=== PATIENT | male | born 1940 | race Caucasian/White ===

== ENCOUNTER 2023-10-05 06:18 | Day surgery (SDC) | payer MEDICARE, OTHER, SELFPAY ==
[2023-10-05] VITALS (7 sets, daily range): BP systolic 103–113; BP diastolic 46–90; BMI 39.3
[2023-10-05] MEDS: LOW STRENGTH ASPIRIN 81 MG PO (07:21)
--- NOTE | 2023-10-05 08:32 | ITS.CL.CATH ---
[facility] - Catheterization
Cardiac Catheterization
Procedure Report:
CARDIAC CATHETERIZATION REPORT
Date of Procedure: 10/05/2023
Referring: Jose Gonzalez M.D., Ph.D.
Indication: Severe aortic valve stenosis.
PROCEDURE:
1. Right heart catheterization.
2. Coronary angiography.
ACCESS:
6 Japanese right radial artery.
5 Japanese right antecubital vein.
CATHETERS:
1. 5 Japanese balloon wedge.
2. 5 Japanese JL 3.5.
3. 5 Japanese JR4.
HEMODYNAMIC DATA
Weight (kg): 103.7
AO (s/d/x mmHg): 109/59/80
LV (s/x mmHg): Not obtained.
PCWP (a/v/x mmHg): 28//24
PA (s/d/x mmHg): 53/25/34
RV (s/x mmHg): 53/13
RA (a/v/x mmHg): /
SVC SvO2 (%): 71.6
PA SvO2 (%): 69.7
SaO2 (%): 85.6
Hbg (g/dL): 13.4
CO (L/min): 8.05
CI (L/min/m2): 3.88
TPG (mmHg): 10
PVR (Meyers Units): 1.24
SVR (dynes*seconds*cm^-5): 666
AVO2 Diff (Volume %): 2.90
AV gradient (x, mmHg): Not obtained.
AV area (cm2): Not obtained.
LEFT VENTRICULOGRAPHY: Not performed.
CORONARY ANGIOGRAPHY
Dominance: Right.
Left Main: Normal size, bifurcating vessel. There is no coronary artery disease.
LAD: Normal size vessel giving rise to 1 significant diagonal. There is a 50% lesion in the mid vessel.
Ramus: Congenitally absent.
Circumflex: Large size, nondominant vessel giving rise to 1 large obtuse marginal. This marginal subsequently bifurcates into 2 daughter vessels which were both bifurcating and into a total of 4 smaller branches. There is no coronary artery
disease.
RCA: Normal size, dominant vessel. There is a 40% lesion in the mid vessel.
INTERVENTIONS
None.
Closure Device: Vascular band for the right radial artery, manual pressure for the right antecubital vein.
Radiation dose (mGy): 454.26
DAP (cm2.Gy): 28.0898
Fluoroscopy time (minutes): 3.6
Sedation time (minutes): 11
CONCLUSIONS:
1. Right dominant circulation with a 50% mid LAD lesion and a 40% mid RCA lesion.
2. Severely elevated filling pressures (PCWP = 24 mmHg at 103.7 kg).
3. Severe aortic valve stenosis by echocardiography.
RECOMMENDATIONS:
1. Expectant management after cardiac catheterization via right radial/antecubital approach.
2. Limited weight bearing on the right wrist for one week.
3. Continue TAVR workup.
4. The patient may benefit from some diuresis. Discontinue combination atenolol/chlorthalidone to mitigate risk of hyponatremia as well as to decrease risk of beta-charlotte toxicity in the context of CKD.
5. Start metoprolol succinate 50 mg daily.
6. Start furosemide 20 mg daily.
7. BMP in 1 week.
Copy to: Jose Gonzalez M.D., Ph.D., Bruna Yung D.O.
Baldomero Pacheco DO, FACC, FACP
--- NOTE | 2023-10-05 08:43 | CONSULT.STRU ---
Addendum entered and electronically signed by ENID White 11/03/23 08:43:
Patient discussed and case reviewed by the Structural Heart Team in the shared decision making meeting. The team feels that TAVR is the appropriate treatment for his severe, symptomatic aortic stenosis utilizing a 29mm S3 valve via transfemoral
access. Will call patient to review discussion and schedule for his TAVR procedure.
Original Note:
Consultation
-
Date/Time Consultation Requested: 10/05/2023829
Date/Time Consultation Performed: 10/05/202330
Requesting Provider: Baldomero Pacheco DO
Performing Provider: Yessenia Salazar
Reason for Consultation: /TAVR
Patient History
Physicians
Family Physician: Bruna Yung MD
Outpatient Nuclear Medicine Officer: Jose Gonzalez MD
Primary Nuclear Medicine Officer: Jose Gonzalez MD
History of Present Illness
Mr. Pineda is a very pleasant 83 yom that presents with severe symptomatic associated with NUR. His echocardiogram from 07/17/2024 is notable for AV P/M 70/43, NESSA 0.68, Trace AI, EF 55-60%, MAC with mild MR, PAP 48. Patient explains that he is
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 Discussed the pathophysiology and treatment options of including SAVR and TAVR. Reviewed kidney function with patient and explained will repeat labs next week. Depending on results, informed "Mimi"Miriam that the CT scan may need to be staged. He will receive a phone call with results and if CT scan will be done in two segments. Explained the evaluation process comprising of CT surgical consult, CT scan, heart team discuss. Mr. Pineda states he
has no teeth and wears dentures, therefore he will not need dental clearance. TAVR booklet, prescriptions, contact information, and appointments given to patient. Allowed for and answered questions at bedside.
Past Medical History
Past Medical History: CHF (stage II diastolic dysfunction), HTN, Hypercholesterolemia, NIDDM (Pre-Diabetes), Valvular Disease (Aortic Stenosis) and Other (Stage 3a CKD, basal cell carcinoma, measles, mumps, chicken pox, prostate ca, insomnia,
peripheral neuropathy)
Past Surgical History
Past Surgical History: Appendectomy, Orthopedic ((R) THR, (L) THR) and Other (Partial nephrectomy (benign kidney growth))
Dental History
Edentulous
Family History
Mother: at Age (65) and Cause of (cancer)
Father: at Age (88) and Cause of (cancer)
Social History
Alcohol: None
Drug: None
Tobacco: Non-Smoker
Personal:
Living: With Spouse
Employment: Retired
Allergies
Allergy/AdvReac Type Severity Reaction Status Date / Time
levofloxacin [From Levaquin] Allergy Rash Verified 10/05/23 07:08
Home Medications
Medication Instructions Recorded Confirmed Type
amlodipine 5 mg tablet 5 mg PO DAILY bp 10/05/23 10/05/23 History
aspirin 81 mg tablet 81 mg PO DAILY supp 10/05/23 10/05/23 History
atenolol 100 mg-chlorthalidone 25 1 tab PO DAILY bp 10/05/23 10/05/23 History
mg tablet
benazepril 20 mg tablet 20 mg PO DAILY bp 10/05/23 10/05/23 History
cholecalciferol (vitamin D3) 25 25 mcg PO DAILY Supplement 10/05/23 10/05/23 History
mcg (1,000 unit) tablet (Vitamin
D3)
sfvzctfhman-ywqpmrkmi-espb247-hyal 1 tab PO BID Supplement 10/05/23 10/05/23 History
750 mg-100 mg-125 mg-1.65 mg
tablet (Glucosamine Chondroit
Complx Advan)
lovastatin 10 mg tablet,extended 10 mg PO HS cholesterol 10/05/23 10/05/23 History
release 24 hr
nuumtbsgytgq-rxuzsjfq-exjggw tablet 1 tab PO DAILY Supplement 10/05/23 10/05/23 History
omega 6-nym-kkg-fish oil 1,200 mg 1,200 cap PO BID AT 0800,1600 supp 10/05/23 10/05/23 History
(144 mg-216 mg) capsule (Fish Oil)
tamsulosin 0.4 mg capsule 0.4 mg PO DAILY prostate 10/05/23 10/05/23 History
vitamin B12 1,000 mcg-folic acid 1,000 tab sublingual DAILY 10/05/23 10/05/23 History
400 mcg sublingual tablet Supplement
STS%
STS %: 3.71
Review of Systems
-
History Source: Patient
General: Reports Fatigue
HEENT: Reports No Symptoms
Respiratory: Reports SOB
Cardiac: Reports No Symptoms
Abdomen/GI: Reports No Symptoms
: Reports No Symptoms
Neurological: Reports No Symptoms
Physical Exam
Vital Signs
Temp 97.9 F 10/05/23 06:43
Temp route: Oral 10/05/23 06:43
Pulse 58 10/05/23 06:43
Resp Rate 19 10/05/23 06:43
Blood pressure 112/46 10/05/23 06:43
Blood pressure extremity used: Left upper arm 10/05/23 06:43
Position: Sitting 10/05/23 06:43
SaO2 96 10/05/23 06:43
Oxygen Mode of Delivery Room air 10/05/23 06:43
Can the patient verbally communicate their pain? Yes 10/05/23 08:39
Actual Weight 103.7 kg 10/05/23 06:43
Body Mass Index (BMI) 39.3 10/05/23 06:43
Labs
09/28/2023
HH: 14.5/44.1
plt: 264K
BUN/Creatine: 25./1.3
GFR: 54.17
Alb: 3.7
Diagnostic Studies
Echo: 07/17/2023
�CONCLUSIONS
�Normal left ventricular size, wall thickness and systolic function.� No
�regional wall motion abnormalities are seen. Estimated ejection fraction is 55-
�60%. Stage II diastolic dysfunction suggestive of abnormal relaxation and
�increased filling pressures.
�Normal right ventricular size and function.
�Structurally normal mitral valve. Mitral annular calcification. Mitral valve
�opens normally. Mild mitral regurgitation.
�Trileaflet aortic valve. Heavily calcified and thickened aortic valve with
�restricted leaflet motion. Peak/mean gradients across the valve are 70/43 mmHg.�
�Using a LVOT of 2.0 cm the calculated valve area is 0.68 cm2.� Severe aortic
�stenosis. Trace aortic regurgitation.
�Structurally normal tricuspid valve. Tricuspid valve opens normally. Mild
�tricuspid regurgitation. Estimated pulmonary artery pressure of 48 mmHg,
�assuming a right atrial pressure of 3 mmHg.�
�As per [place] Act 112, known as Patient Test Result Information Act, a letter will
�be sent to the patient, which notifies to the patient that a significant
�abnormality may exist. A letter will be sent approximately 10 days after the
�echo report is finalized.
Cath 10/05/2023:
CONCLUSIONS:
1.� Right dominant circulation with a 50% mid LAD lesion and a 40% mid RCA lesion.
2.� Severely elevated filling pressures (PCWP = 24 mmHg at 103.7 kg).
3.� Severe aortic valve stenosis by echocardiography.
RECOMMENDATIONS:
1. Expectant management after cardiac catheterization via right radial/antecubital approach.
2. Limited weight bearing on the right wrist for one week.
3.� Continue TAVR workup.
4.� The patient may benefit from some diuresis. Discontinue combination atenolol/chlorthalidone to mitigate risk of hyponatremia as well as to decrease risk of beta-charlotte toxicity in the context of CKD.
5.� Start metoprolol succinate 50 mg daily.
6.� Start furosemide 20 mg daily.
7.� BMP in 1 week.
Exam
General: Well Developed
HEENT: Normocephalic and Moist Mucous Membranes
Respiratory: Clear
Cardiac: Regular Rhythm and Murmur (IV/ ALETHA)
GI: Soft and Non Tender
Rectal: Deferred by Provider
Skin: Warm, Dry and Rash (Groin)
Neuro: Awake, Alert and Oriented
Extremities: Lower Level Edema
Psych: Calm
Assessment / Plan
-
Aortic Stenosis
Continue TAVR evaluation
Trend creatinine (Rx given)
TAVR CT scan (10/25)
CT surgical consult (10/12 TT)
Frailty testing and KCCQ12 at consult
Dental Clearance (pt edentulous)
Will need to start aspirin
Heart team discussion
Data Reviewed
-
Laminating Machine Feeder: Report Reviewed by me and Discussed with Physician
Echo: Report Reviewed by me and Discussed with Physician
Labs: Labs Reviewed by me
Old Records: Reviewed (Dr. Gonzalez OV)
Total Time Spent with Patient (in minutes): 45
--- NOTE | 2023-10-05 09:37 | PTCARENOTE ---
dr mosquera and ac mccrary from Tavr into speak to pt
== END 2023-10-05 11:14 | disposition home or self-care (01) ==
LOC: CATH 06:18
PROVIDERS: ATTENDING PHYSICIAN Internal Medicine Cardiovascular Disease; FAMILY PHYSICIAN Student in an Organized Health Care Education/Training Program; OTHER PHYSICIAN Internal Medicine
DX: I25.10 Atherosclerotic heart disease of native coronary artery without angina pectoris (principal); R06.09 Other forms of dyspnea; I13.0 Hypertensive heart and chronic kidney disease with heart failure and stage 1 through stage 4 chronic kidney disease, or unspecified chronic kidney disease; I50.32 Chronic diastolic (congestive) heart failure; E11.22 Type 2 diabetes mellitus with diabetic chronic kidney disease; I08.3 Combined rheumatic disorders of mitral, aortic and tricuspid valves; N18.31 Chronic kidney disease, stage 3a; E78.00 Pure hypercholesterolemia, unspecified; Z85.828 Personal history of other malignant neoplasm of skin; Z85.46 Personal history of malignant neoplasm of prostate; E11.42 Type 2 diabetes mellitus with diabetic polyneuropathy
CPT/HCPCS: 93456; C1894; Q9967

== ENCOUNTER → 2023-10-12 10:20 | Outpatient (REF) | payer MEDICARE, OTHER, SELFPAY ==
[2023-10-12 11:30] LABS: Blood Urea Nitrogen 25 mg/dl (9-20); Calcium 9.1 mg/dl (8.4-10.2); Carbon Dioxide 32 mmol/L (22-30); Chloride 105 mmol/L (98-107); Glucose 81 mg/dl (70-99); Magnesium 2.2 mg/dl (1.6-2.3); Potassium 4.2 mmol/L (3.5-5.1); Sodium 140 mmol/L (135-145); eGFR 54.17
== END ==
LOC: REG 10:20
PROVIDERS: ATTENDING PHYSICIAN Internal Medicine Cardiovascular Disease; FAMILY PHYSICIAN Internal Medicine
DX: I10 Essential (primary) hypertension (principal); N18.9 Chronic kidney disease, unspecified
CPT/HCPCS: 36415; 80048; 83735

== ENCOUNTER → 2023-11-01 08:44 | Outpatient (REF) | payer MEDICARE, OTHER, SELFPAY ==
[2023-11-01 09:58] LABS: Glycohemoglobin (HgbA1c) 5.8 % (4.0-5.6)
[2023-11-01 10:22] LABS: Blood Urea Nitrogen 19 mg/dl (9-20); Calcium 8.8 mg/dl (8.4-10.2); Carbon Dioxide 31 mmol/L (22-30); Chloride 105 mmol/L (98-107); Glucose 92 mg/dl (70-99); HDL Cholesterol 39 mg/dl; LDL Cholesterol, Calculated 56 mg/dl; Potassium 4.3 mmol/L (3.5-5.1); Sodium 140 mmol/L (135-145); Total Cholesterol 115 mg/dl (50-199); Triglyceride 103 mg/dl (10-149); Very Low Density Lipoprotein 20 mg/dl (0-30); eGFR 54.17
[2023-11-01 10:28] LABS: Vitamin D, 25-OH*** 49.4 ng/mL (30-80)
[2023-11-01 11:17] LABS: Folate > 20.0 ng/ml (2.76-20); Vitamin B12 667 pg/ml (239-931)
== END ==
LOC: RAD 08:44
PROVIDERS: ATTENDING PHYSICIAN Nurse Practitioner Acute Care; FAMILY PHYSICIAN Student in an Organized Health Care Education/Training Program
DX: I35.0 Nonrheumatic aortic (valve) stenosis (principal); G62.9 Polyneuropathy, unspecified; Z79.899 Other long term (current) drug therapy; E78.5 Hyperlipidemia, unspecified; R73.03 Prediabetes; R94.4 Abnormal results of kidney function studies
CPT/HCPCS: 36415; 74174; 75572; 80048; 80061; 82306; 82607; 82746; 83036; Q9967

== ENCOUNTER 2023-12-07 05:24 | Inpatient (IN) | payer MEDICARE, OTHER, SELFPAY ==
[2023-11-29 11:47] VITALS: BMI 39.3
--- NOTE | 2023-11-29 12:09 | HPS.HSE ---
Family Physician
-
Family Physician: Mary Kay Yung DO
Chief Complaint
-
NUR
History of Present Illness
Mr. Pineda is a very pleasant 83 yom that presents with severe symptomatic associated with NUR. His echocardiogram from 07/17/2024 is notable for AV P/M 70/43, NESSA 0.68, Trace AI, EF 55-60%, MAC with mild MR, PAP 48. Patient explains that he is
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 Discussed the pathophysiology and treatment options of including SAVR and TAVR. Reviewed kidney function with patient.Mr. Pineda states he has no teeth and wears dentures, therefore he will not need
dental clearance. Patient has been evaluated by the heart team and recommended for transfemoral TAVR utilizing a 26 mm S3 via right access.
Assessed patient in preadmission testing and confirmed medication list. Mr. Pineda will continue aspirin including the morning of TAVR and hold fish oil starting Tomorrow (11/29). He will arrive to the [facility] atrium at 0530. Reviewed the risks of the
procedure including stroke, ppm, and vascular injury. Informed him, he will get a call from the heart team on Monday (12/05) to confirm time and location of arrival. Allowed for and answered questions.
Medical History
Past Medical History
Past Medical History: Reports Cancer (prostate, basal cell), HTN, Valvular Disease (aortic stenosis) and Other (insomnia, HLD, peripheral neuropathy, measles, mumps, chicken pox.)
Past Surgical History: Reports Appendectomy and Orthopedic (Left and right THR)
Additional Past Surgical History:
benign kidney growth, hernia repair
Social History
Tobacco: Non-smoker
Alcohol: None
Drug: None
Personal:
Living: Alone
Employment: Retired
Family History
Family History: Not pertinent
Allergies / Home Medications
Allergies reflects when Allergies were last updated in [facility].
adhesive-- rash
levofloxacin -- rash
Home Medications with original date entered in [facility]
Allergy/Medication List:
amLODIPine Besylate 5 MG Tablet 1 tablet Orally Once a day
Aspirin 81 81 MG Tablet Delayed Release 1 tablet Orally Once a day
Benazepril HCl 20 MG Tablet 1 tablet Orally Once a day
Centrum Silver(Multiple Vitamins-Minerals) - Tablet as directed Orally
Fish Oil 1200 MG Capsule Delayed Release 1 capsule Orally Once a day, Notes: 2x day
Lwugsx-Shjpwubyk-TPC Complex(Misc Natural Products) - Tablet as directed Orally Twice a Day
Lasix(Furosemide) 20 MG Tablet 1 tablet Orally Once a day
Lovastatin 10 MG Tablet 1 tablet with the evening meal Orally Once a day
Tamsulosin HCl 0.4 MG Capsule 1 capsule Orally Once a day
Toprol XL 50 MG Tablet Extended Release 1 tablet Orally Once a day
Vitamin B12 1000 MCG Tablet Extended Release 1 tablet Orally Once a day
Vitamin D3(Cholecalciferol) 473844 UNIT/GM Powder as directed
Review of Systems
-
History Source: Patient
Constitutional: Reports No Symptoms
EENT: Reports No Symptoms
Respiratory: Reports Other (mild NUR)
Cardiac: Reports No Symptoms
Abdomen/GI: Reports No Symptoms
: Reports No Symptoms
Musculoskeletal: Reports Joint Pain
Skin: Reports No Symptoms
Neurological: Reports No Symptoms
Hematologic/Lymphatic: Reports No Symptoms
Psych: Reports No Symptoms and Calm
Physical Exam
Physical Exam
General: Well Developed, Well Nourished and No Apparent Distress
HEENT: NormoCephalic and Moist mucous membranes
Respiratory: Clear
Cardiac: Regular Rhythm and Murmur (III/ ALETHA)
Breast: Deferred by me
GI: Non Tender
Rectal: Deferred by Provider
Genito-urinary: Deferred by me
Musculoskeletal: Edema, Left Lower Extremity and Edema, Right Lower Extremity
Skin: Warm and Dry
Neuro: Awake, Alert, Oriented and AO x 3
Psych: Calm
Data Reviewed
-
Diagnostic Radiology: Report Reviewed by me
CT Scan: Report Reviewed by me and Discussed with Physician (Reviewed TAVR CT scan with the heart team)
Medical Tests (Nuc Med, Echo, EKG etc): Report Reviewed by me and Discussed with Physician (Reviewed Echocardiogram and cardiac catheterization with the heart team)
Lab Data: Labs Reviewed by me
Old Records: Reviewed
Impression/Plan
-
IMPRESSION/ PLAN:
Severe symptomatic -TF TAVR planned with Drs. Pacheco and Brennan utilizing a 26mm S3 via right TF access.
Continue aspirin
POD#10/03 echocardiogram
Cardiac rehab consult.
Lab Results
-
Lab Results
WBC 8.0 10^3/uL (4.8-10.8) 11/29/23 12:11
RBC 4.50 10^6/uL (4.70-6.10) L 11/29/23 12:11
Hgb 14.2 g/dL (13.0-18.0) 11/29/23 12:11
Hct 44.3 % (39.0-52.0) 11/29/23 12:11
MCV 98.4 fL (80.0-94.0) H 11/29/23 12:11
MCH 31.6 pg (27.0-31.0) H 11/29/23 12:11
MCHC 32.1 g/dL (33.0-37.0) L 11/29/23 12:11
RDW 13.9 % (11.5-14.5) 11/29/23 12:11
Plt Count 246 10^3/uL (130-400) 11/29/23 12:11
MPV 9.4 fL (7.4-10.4) 11/29/23 12:11
Abs Immat Gran (auto) 0.0 10^3/uL (0-0.05) 11/29/23 12:11
Absolute Neuts (auto) 5.5 10^3/uL (1.4-6.5) 11/29/23 12:11
Absolute Lymphs (auto) 1.5 10^3/uL (1.2-3.4) 11/29/23 12:11
Absolute Monos (auto) 0.7 10^3/uL (0.1-0.6) H 11/29/23 12:11
Absolute Eos (auto) 0.3 10^3/uL (0-0.7) 11/29/23 12:11
Absolute Basos (auto) 0.1 10^3/uL (0-0.2) 11/29/23 12:11
Immature Gran % 0.3 % (0-0.5) 11/29/23 12:11
Neutrophils % 68.4 % (42.2-75.2) 11/29/23 12:11
Lymphocytes % 18.6 % (20.5-51.1) L 11/29/23 12:11
Monocytes % 8.6 % (1.7-9.3) 11/29/23 12:11
Eosinophils % 3.5 % (0-6) 11/29/23 12:11
Basophils % 0.6 % (0-2) 11/29/23 12:11
Nucleated RBC % 0 % (-) 11/29/23 12:11
PT 14.1 Sec (11.4-14.6) 11/29/23 12:11
INR 1.08 11/29/23 12:11
APTT 30.0 Sec (23.4-35.0) 11/29/23 12:11
Sodium 141 mmol/L (135-145) 11/29/23 12:11
Potassium 4.1 mmol/L (3.5-5.1) 11/29/23 12:11
Chloride 107 mmol/L (98-107) 11/29/23 12:11
Carbon Dioxide 30 mmol/L (22-30) 11/29/23 12:11
BUN 17 mg/dl (9-20) 11/29/23 12:11
Creatinine 1.2 mg/dL (0.7-1.3) 11/29/23 12:11
Estimated Creat Clear 50 ml/min 11/29/23 12:11
eGFR 59.63 11/29/23 12:11
Glucose 89 mg/dl (70-99) 11/29/23 12:11
Calcium 9.4 mg/dl (8.4-10.2) 11/29/23 12:11
Total Bilirubin 0.8 mg/dl (0.2-1.3) 11/29/23 12:11
Direct Bilirubin 0.1 mg/dl (0.0-0.4) 11/29/23 12:11
AST 28 U/L (17-59) 11/29/23 12:11
ALT 23 U/L (0-50) 11/29/23 12:11
Alkaline Phosphatase 53 U/L (38-126) 11/29/23 12:11
Qty-Y-Jgprpfivujt Pept 388 pg/ml 11/29/23 12:11
Total Protein 6.6 g/dl (6.3-8.2) 11/29/23 12:11
Albumin 3.9 g/dl (3.5-5.0) 11/29/23 12:11
Urine Color Yellow 11/29/23 12:31
Urine Clarity Clear (Clear) 11/29/23 12:31
Urine pH 6.5 (5.0-9.0) 11/29/23 12:31
Ur Specific [place] 1.015 (<1.030) 11/29/23 12:31
Urine Ketones Negative (Negative) 11/29/23 12:31
Ur Occult Blood Reflex Negative (Negative) 11/29/23 12:31
Urine Nitrite (Reflex) Negative (Negative) 11/29/23 12:31
Urine Bilirubin Negative (Negative) 11/29/23 12:31
Urine Urobilinogen Negative (Neg - 1+) 11/29/23 12:31
Leukocyte Esterase Rfl Negative (Negative) 11/29/23 12:31
Urine Glucose Negative (Negative) 11/29/23 12:31
Urine Albumin (Reflex) Trace (Neg - Trace) 11/29/23 12:31
Cardiac Catheterization Lab
Angioplasty
Procedure Report:
Cardiac Catheterization: 10/05/2023
CONCLUSIONS:
1. Right dominant circulation with a 50% mid LAD lesion and a 40% mid RCA lesion.
2. Severely elevated filling pressures (PCWP = 24 mmHg at 103.7 kg).
3. Severe aortic valve stenosis by echocardiography.
RECOMMENDATIONS:
1. Expectant management after cardiac catheterization via right radial/antecubital approach.
2. Limited weight bearing on the right wrist for one week.
3. Continue TAVR workup.
4. The patient may benefit from some diuresis. Discontinue combination atenolol/chlorthalidone to mitigate risk of hyponatremia as well as to decrease risk of beta-charlotte toxicity in the context of CKD.
5. Start metoprolol succinate 50 mg daily.
6. Start furosemide 20 mg daily.
7. BMP in 1 week.
Echocardiogram: 07/17/2023
CONCLUSIONS
Normal left ventricular size, wall thickness and systolic function. No
regional wall motion abnormalities are seen. Estimated ejection fraction is 55-
60%. Stage II diastolic dysfunction suggestive of abnormal relaxation and
increased filling pressures.
Normal right ventricular size and function.
Structurally normal mitral valve. Mitral annular calcification. Mitral valve
opens normally. Mild mitral regurgitation.
Trileaflet aortic valve. Heavily calcified and thickened aortic valve with
restricted leaflet motion. Peak/mean gradients across the valve are 70/43 mmHg.
Using a LVOT of 2.0 cm the calculated valve area is 0.68 cm2. Severe aortic
stenosis. Trace aortic regurgitation.
Structurally normal tricuspid valve. Tricuspid valve opens normally. Mild
tricuspid regurgitation. Estimated pulmonary artery pressure of 48 mmHg,
assuming a right atrial pressure of 3 mmHg.
As per [place] Act 112, known as Patient Test Result Information Act, a letter will
be sent to the patient, which notifies to the patient that a significant
abnormality may exist. A letter will be sent approximately 10 days after the
echo report is finalized.
CT scan 10/19/2023 & 11/01/2023
Measurements for proposed TAVR procedure
Mild to moderate motion artifact on this examination.
Trileaflet aortic valve with moderate calcification. No significant calcification extending into the left ventricular outflow tract.
Aortic annulus: 31.4 mm x 25.5 mm. Measured cross-sectional area of 589 sq mm.
Left ventricular outflow tract: Measured cross-sectional area of 505 sq mm.
Sinuses of Valsalva: 32.0 mm x 30.2 mm x 33.4 mm.
Sinotubular junction: 29.1 mm x 28.2 mm.
Distance from aortic annulus to left coronary artery origin: 21.1 mm.
Distance from aortic annulus to right coronary artery origin: 16.6 mm.
Estimated coplanar angle: SCOTTISH 1, caudal 4
Cusp overlap view: WHITNEY 14, caudal 29
Minimum diameters of aorta and iliofemoral arteries:
AORTA
Minimal calcification. 19.8 mm x 17.6 mm.
RIGHT
Right common iliac: Mild eccentric calcification. 13.1 mm x 10.3 mm.
Right external iliac: 10.3 mm x 9.1 mm.
Right CLINICAL OFFICE TECHNICIAN: 11.8 mm x 10.0 mm.
Right SFA: 8.0 mm x 6.8 mm.
LEFT
Left common iliac: Mild to moderate eccentric calcification. 11.3 mm x 9.1 mm.
Left external iliac: 11.6 mm x 10.5 mm.
Left CLINICAL OFFICE TECHNICIAN: Mild eccentric calcification. 10.9 mm x 9.6 mm.
Left SFA: 8.1 mm x 6.9 mm.
[2023-11-29 12:37] LABS: % Basophils 0.6 % (0-2); % Eosinophils 3.5 % (0-6); % Immature Granulocytes 0.3 % (0-0.5); % Lymphocytes 18.6 % (20.5-51.1); % Monocytes 8.6 % (1.7-9.3); % Neutrophils 68.4 % (42.2-75.2); Absolute Basophils 0.1 10^3/uL (0-0.2); Absolute Eosinophils 0.3 10^3/uL (0-0.7); Absolute Lymphocytes 1.5 10^3/uL (1.2-3.4); Absolute Monocytes 0.7 10^3/uL (0.1-0.6); Absolute Neutrophils 5.5 10^3/uL (1.4-6.5); Hematocrit 44.3 % (39.0-52.0); Hemoglobin 14.2 g/dL (13.0-18.0); Mean Corp Hgb Conc. 32.1 g/dL (33.0-37.0); Mean Corpuscular Hgb 31.6 pg (27.0-31.0); Mean Corpuscular Volume 98.4 fL (80.0-94.0); Mean Platelet Volume 9.4 fL (7.4-10.4); Nucleated Red Blood Cells % 0 % (-); Platelet Count 246 10^3/uL (130-400); Red Cell Dist. Width 13.9 % (11.5-14.5)
[2023-11-29 12:47] LABS: INR 1.08; PT 14.1 Sec (11.4-14.6)
[2023-11-29 12:56] LABS: NT-proBNP 388 pg/ml
[2023-11-29 13:02] LABS: Urine Albumin Trace (Neg - Trace); Urine Bilirubin Negative (Negative); Urine Character Clear (Clear); Urine Color Yellow; Urine Glucose Negative (Negative); Urine Ketone Negative (Negative); Urine Leukocyte Negative (Negative); Urine Nitrite Negative (Negative); Urine Occult Blood Negative (Negative); Urine Specific Gravity 1.015 (<1.030); Urine Urobilinogen Negative (Neg - 1+); Urine pH 6.5 (5.0-9.0)
[2023-11-29 13:10] LABS: ALT (SGPT) 23 U/L (0-50); AST (SGOT) 28 U/L (17-59); Albumin 3.9 g/dl (3.5-5.0); Alkaline Phosphatase 53 U/L (38-126); Blood Urea Nitrogen 17 mg/dl (9-20); Calcium 9.4 mg/dl (8.4-10.2); Carbon Dioxide 30 mmol/L (22-30); Chloride 107 mmol/L (98-107); Direct Bilirubin 0.1 mg/dl (0.0-0.4); Estimated Creatinine Clearance 50 ml/min; Glucose 89 mg/dl (70-99); Potassium 4.1 mmol/L (3.5-5.1); Sodium 141 mmol/L (135-145); Total Bilirubin 0.8 mg/dl (0.2-1.3); Total Protein 6.6 g/dl (6.3-8.2); eGFR 59.63
--- NOTE | 2023-11-29 13:57 | CM ---
Met with Mr. Pineda in [facility]. He states prior to admission he resides alone in a one story home with a ramp to enter. He states his spouse has been in [facility] impaired unit for the last two months. He states prior to admission he was
independent with ambulation and adls. He states he does not have any DME in the home. He states he has a prescription plan with [facility] and uses [facility] mail order and [facility] when needed. The discharge plan is to return home with a
home visit by the Cardiothoracic Transitional Care Nurse when medically stable.
We reviewed pre-op and post-op routines. We reviewed the shower instructions. He has the soap,and written instructions. He already had the TAVR Educational Booklet. We also reviewed restrictions, including driving and lifting restrictions. We
discussed a home visit by the Cardiothoracic Transitional Care Nurse. He is agreeable to a home visit. The plan is for TAVR on 12/07/23.
[2023-12-07] VITALS (21 sets, daily range): BP systolic 108–141; BP diastolic 44–68; PULSE 64; BMI 37.8
--- NOTE | 2023-12-07 06:09 | PTCARENOTE ---
Direct admit for TAVR this morning. son at the bedside. AAOx3. neuro intact. IV site placed. OR prep completed. generalized scabs noted. + pulses/LE edema noted. answered all question.
[2023-12-07] MEDS: ANCEF 10 IV (07:10)
--- NOTE | 2023-12-07 07:39 | W.CVOR.SURPR ---
CVOR Surgeon Immed Pre Op
-
I have examined this patient prior to performance of the scheduled procedure.
The patient's condition is unchanged from the time of the dictated/written History and
Physical and the patient is able to undergo the scheduled procedure.
[2023-12-07 08:17] LABS: ACT-LR - POC 372 Seconds (116-155)
--- NOTE | 2023-12-07 08:33 | W.IMMPOSTOP ---
Surgical Immed Post Op Note
-
[id number]
STRUCTURAL HEART PROCEDURE NOTE: TAVR
Preoperative Dx:
Severe aortic stenosis (P/M: 70/43, NESSA 0.68)
CKD 3a
Prostate CA
Basal Cell CA
HTN/HLD
Peripheral neuropathy
Pre-diabetes
HCH
Measles, mumps, chicken pox
Postoperative Dx:
Same
Acute on chronic, combined systolic/diastolic CHF w/ elevated LVED (25mmHg)
Procedures:
1) L CFV access w/ U/S and fluoroscopic guidance, micropuncture technique, 6Fr sheath placement
2) L RESEARCH ENVIRONMENTAL ENGINEER access w/ tactile, U/S, and fluoroscopic guidance, micropuncture technique, limited angiography, 6Fr sheath placement
3) R RESEARCH ENVIRONMENTAL ENGINEER access w/ tactile, U/S, and fluoroscopic guidance, micropuncture technique, limited angiography, 8Fr dilator placement
4) Placement of perclose sutures x 2 into R RESEARCH ENVIRONMENTAL ENGINEER, 8Fr sheath placement
5) Placement of temporary RV pacing wire w/ threshold testing
6) Placement of pigtail catheter in RCC w/ limited aortography & confirmation of coplanar valve deployment angle
7) Placement of Bowling E-sheath via R RESEARCH ENVIRONMENTAL ENGINEER (systemic heparinization)
8) Wire purchase across stenotic AV (AL-1, soft-tip straight, extra-stiff) w/ LVEDP assessment
9) R TF TAVR w/ placement of 29mm OUSMANE 3 valve
10) Completion aortography
11) Completion TTE (mean gradient 4mmHg, no AI)
12) Removal of ytwly-taebimrc-hwxcnv & Bowling E-sheath w/ R RESEARCH ENVIRONMENTAL ENGINEER mgmt w/ perclose sutures and manual pressure
13) Completion R ileofemoral angiography
14) Removal of temporary pacing wire
15) Removal of L RESEARCH ENVIRONMENTAL ENGINEER 6Fr sheath w/ mgmt w/ 6Fr angioseal and manual pressure
16) Removal of L CFV 6Fr sheath w/ manual pressure
Dba:
Dr. Baldomero Pacheco
Cardiac Surgeon:
Dr. Scott Amin
Anesthesia:
MAC & local to B/L groins
Implants:
Bowling Lifesciences, 29mm Model [id number], Serial [id number]
Perclose x 2
6Fr angioseal x 1
Complications:
None
Cath Data:
Start: 0747hrs, Deploy: 0818hrs, End: 08hrs
FT: 7.3min, mGy: 515.42, DAP: 58.4187, Contrast: 85mL
Post-TTE: mean 4mmHg, no AI
Condition:
Stable/guarded to recovery
--- NOTE | 2023-12-07 08:40 | ITS.CL.TAVR ---
Public Health - TAVR Report
TAVR PRocedure
Procedure Report:
TRANSCATHETER AORTIC VALVE REPLACEMENT REPORT
Date: 12/07/2023
Referring physician: Jose Gonzalez M.D., Ph.D.
Preop diagnosis: Severe aortic valve stenosis.
Postop diagnosis: Severe aortic valve stenosis, acute on chronic congestive heart failure.
Procedure: Transcatheter aortic valve replacement (TAVR) using a #29 Bowling EDILMA S3 Ultra.
Operators: Baldomero Pacheco DO, Matthew Thomas, M.D.
Findings: Severely calcified and stenotic aortic valve.
Anesthesia: Conscious sedation was provided by the anesthesia staff.
Estimated blood loss: Negligible.
Complications: None.
Condition: Stable
Procedure:
The patient was brought to the cardiac candlemaking laborer after consent and was prepped and draped in standard sterile fashion. Conscious sedation was provided by the anesthesia staff. After a 'Time Out,' bilateral common femoral arteries and the left
common vein were access using a modified Seldinger technique with a micropuncture kit under ultrasound guidance. A 6 Swazi sheath was placed in the left femoral vein. Angiography performed through the micropuncture sheath confirmed satisfactory
arterial placement in the left common femoral artery. The micropuncture sheath was replaced with a 6Fr sheath in the left LOOM TUNER. Angiography through the micropuncture kit confirmed satisfactory arterial placement in the right common femoral artery.
The right LOOM TUNER was dilated with an 8FR dilator and preclosed with two Perc-Close devices. An 8Fr sheath was placed in the RCFA. A temporary pacing wire was advanced through the left femoral vein and into the right ventricle. The pacemaker
demonstrated good capture and was set to back up. A 5Fr pigtail catheter was advanced through the left femoral sheath and seated in the right coronary cusp. Angiography confirmed co-planar angles.
An AL-1 catheter was advanced through the 8Fr sheath, the J wire was exchanged for an Amplatz Superstiff wire and the catheter and the 8 Fr sheath was removed. The 16 Fr Bowling E-sheath was inserted over the wire and into the descending aorta.
Heparin 8000 units was given. The EDILMA S3 was prepared on the back table. Orientation was confirmed by both physicians. The AL-1 catheter was re-advanced through the E-sheath to the level of the ascending aorta. The Superstiff wire was removed
and a soft tip straight wire was advanced through the AL-1. The straight tip wire was used to cross the aortic valve and the catheter was advanced into the left ventricle. The straight wire was removed and an Amplatz Extrastiff wire with curved
proximal end was advanced through the catheter and into the left ventricle. The wire was seated in the apex and the catheter was removed. ACT was checked and confirmed to be > 250 seconds.
The valve was advanced over the Extrastiff wire and into the descending aorta. The balloon was withdrawn and the valve was mounted on the balloon. The valve was advanced over the aortic arch and into the aortic valve annulus. The pusher device
was withdrawn to allow for balloon expansion. Low volume aortography confirmed good position of the valve. The valve was deployed during rapid ventricular pacing. Echocardiography and aortography confirmed a good result with no aortic valve
insufficiency and a 4 mmHg mean gradient. The valve deployment system was removed. The Bowling E sheath was then removed and hemostasis obtained with the two Perc-Close sutures. Final angiography demonstrated no evidence of ileofemoral
dissection/perforation and good runoff below the common femoral artery. The pacemaker and the pigtail catheter were removed. The left femoral artery sheath was removed using a 6 Swazi Angio-Seal. The left femoral venous sheath was removed and
manual pressure was applied with excellent hemostasis.
Radiation
Dose (mGy): 515.42
DAP (cm2.Gy): 58.4187
Fluoroscopy time (minutes): 7.3
TAVR Echo Gradient (mmHg): For
LV (s/x, mmHg): 162/25 (A wave to 48)
TAVR Cath Gradient (mmHg): Not obtained.
Conclusions:
1. Successful placement of # 29 Edilma S3 Ultra aortic valve via right transfemoral approach with no acute complications.
2. Acute on chronic heart failure with elevated filling pressures (LVEDP = 25 at 103.0 kg) and evidence of significant diastolic dysfunction (A wave to 48 mmHg).
Baldomero Pacheco, DO, FACC, FACP
Copy to: Scott Amin M.D., Jose Gonzalez M.D., Ph.D., Bruna Yung D.O.
--- NOTE | 2023-12-07 08:49 | W.PN.UPDATE ---
Update Note
Progress Note Update
Reviewed Mr. Pineda with the heart team in the preTAVR SDM meeting and confirmed a 29 mm S3 via right transfemoral access. Patient will resume aspirin post TAVR. LVEDP 25mmHg. #29mm S3 (serial# [id number]) successfully deployed via (R) TF access. Post
implant MG 4mmHg.
--- NOTE | 2023-12-07 09:19 | CM ---
Patient in OR today for TAVR.
Reviewed initial assessment. Pt. resides alone in a private, 1 story home. Functionally, patient is indep. w/ ADLs, mobility without the use of any assisted device.
Anticipated DC plan is for home w/ CT Transitional Care RN.
CM to follow.
[2023-12-07] MEDS: ANCEF 5 IV (16:01)
[2023-12-07] MEDS: FLUSH (NSS) 1 FLUSH IV (16:02)
[2023-12-07] MEDS: TOPROL XL 50 MG PO (16:02)
[2023-12-07] MEDS: ANCEF IV (16:05)
--- NOTE | 2023-12-07 17:00 | PTCARENOTE ---
Pt received at 10:30 post TAVR. Pt awake, alert and oriented. Room air sat 88% lying flat. 02 on at 2LNC while on bedrest. Pt now on room air, sat 95%. Bilateral groin sites WNL. OOB to the chair and to the BR. Neuro checks WNL.
[2023-12-07] MEDS: NORVASC 5 MG PO (17:11)
[2023-12-07] MEDS: LASIX 20 MG PO (17:11)
[2023-12-07] MEDS: LIPITOR 10 MG PO (17:11)
[2023-12-07] MEDS: FLOMAX 0.400000000000000022 MG PO (17:38)
--- NOTE | 2023-12-07 23:05 | PTCARENOTE ---
AOX3; pleasant. B/l groins c/d/i. No c/o at this time. Pt ambulatory around room; steady gait. Tele- SR. HR 60-70s. Assessment noted as documented. Currently resting in bed; call brigid w/in reach.
--- NOTE | 2023-12-08 01:25 | W.PN.CT ---
Addendum entered and electronically signed by Scott Amin MD 12/08/23 09:02:
I saw and examined the patient.
The PA's note was reviewed and I agree with the note.
Comment: Doing well
- Echocardiogram today
- ASA only
- Resume home medications
- D/C planning for hopefully later today
Original Note:
Today's Communication / Plan
-
-pod #1
-no significant issues overnight.
-b/l groins site are stable.
-Sinus rhythm overnight
-EKG, chest x-ray and echo today
-Continue home medications
-appreciate Cardiology input
-encourage IS and ambulation
-Possible DC after echo
Assessment / Plan
-
Severe aortic stenosis
Chronic kidney disease stage IIIa
Prostate cancer
Basal cell cancer
Hypertension
Hyperlipidemia
Peripheral neuropathy
Prediabetes
HCH
History of measles, mumps, and chickenpox
Acute on chronic, combined systolic/diastolic CHF with elevated LVEDP
Discussed patient care with: Cardiology
Subjective
Procedure
S/p right transfemoral transcatheter aortic valve replacement with placement of #29 [address] OUSMANE [address] Amin; POD #1
-
Date of Service: December 08, 2023
Objective Data
-
12/08/23 04:02
12/08/23 04:02
PT 14.1 Sec (11.4-14.6) 11/29/23 12:11
INR 1.08 11/29/23 12:11
APTT 30.0 Sec (23.4-35.0) 11/29/23 12:11
Vital Signs
Vital Signs
Temp Pulse Resp BP Pulse Ox
97.9 F 73 16 127/65 91
12/07/23 22:39 12/07/23 22:35 12/07/23 22:39 12/07/23 22:35 12/07/23 22:39
CT Intake/Output/Weight
12/07/23 12/07/23 12/08/23
06:59 18:59 06:59
Intake Total 240 / 240
Balance 240 / 240
SaO2: 91
Physical Exam
-
General: AOx3
Cardiovascular: Regular rate & rhythm
Respiratory: Clear
Incision: Clean, Dry and Intact
[2023-12-08 03:51] VITALS: BP 122/59
[2023-12-08 04:12] VITALS: BMI 38.0
[2023-12-08 04:25] LABS: Hemoglobin 13.3 g/dL (13.0-18.0); Mean Corp Hgb Conc. 32.4 g/dL (33.0-37.0); Mean Corpuscular Hgb 31.4 pg (27.0-31.0); Mean Corpuscular Volume 96.7 fL (80.0-94.0); Mean Platelet Volume 9.5 fL (7.4-10.4); Platelet Count 203 10^3/uL (130-400); Red Blood Cell Count 4.24 10^6/uL (4.70-6.10); Red Cell Dist. Width 13.5 % (11.5-14.5); White Blood Cell Count 14.6 10^3/uL (4.8-10.8)
[2023-12-08 04:58] LABS: Blood Urea Nitrogen 22 mg/dl (9-20); Calcium 9.2 mg/dl (8.4-10.2); Carbon Dioxide 26 mmol/L (22-30); Chloride 105 mmol/L (98-107); Estimated Creatinine Clearance 55 ml/min; Glucose 117 mg/dl (70-99); Potassium 4.3 mmol/L (3.5-5.1); Sodium 136 mmol/L (135-145); eGFR > 60.00
--- NOTE | 2023-12-08 06:52 | W.PN.CD ---
Today's Communication / Plan
-
Echo this morning.
Increase atorvastatin to 40 mg daily.
Furosemide 40 mg IV x1 this morning.
Increase home furosemide to 40 mg PO daily.
Outpatient BMP in one week.
Impression / Plan
-
Impression/Plan: 83 y/o male with HTN, HLD, non-obstructive CAD, osteoarthritis and severe aortic valve stenosis admitted for elective TAVR.
#Severe
-S/P #29 Bowling EDILMA S3 ultra TAVR via right transfermoral approach.
-Telemetry is benign.
-Access sites are C/D/I.
-Antithrombotic therapy with aspirin.
-Postop TTE this morning.
#Acute on chronic HFpEF
-LVEDP 25 mmHg during TAVR.
-Furosemide 20 mg IV given yesterday.
-Furosemide 40 mg IV x1 today and increase home furosemide to 40 mg daily.
-Outpatient BMP in one week.
#HTN
-Chronic, stable.
-Home metoprolol, benazepril, amlodipine.
#CAD
-Chronic, stable.
-Seen on pre-TAVR cath.
-Change lovastatin to atorvastatin 40 mg daily.
-Continue aspirin.
#HLD
-Chronic, stable.
-Change lovastatin to atorvastatin as above.
#PPx
-SCD's for DVT/VTE.
-No role for PPI.
#Dispo
-IVU status.
-Discharge planning.
Subjective/Interval History:
Successful TAVR yesterday.
No acute events overnight.
DATA:
TAVR, 12/07/2023:
Conclusions:
1. Successful placement of # 29 Edilma S3 Ultra aortic valve via right transfemoral approach with no acute complications.
2. Acute on chronic heart failure with elevated filling pressures (LVEDP = 25 at 103.0 kg) and evidence of significant diastolic dysfunction (A wave to 48 mmHg).
Cardiac Catheterization, 10/05/2023:
CONCLUSIONS:
1. Right dominant circulation with a 50% mid LAD lesion and a 40% mid RCA lesion.
2. Severely elevated filling pressures (PCWP = 24 mmHg at 103.7 kg).
3. Severe aortic valve stenosis by echocardiography.
Physical Exam
Vital Signs/Labs
Vital Signs
Temp Pulse Resp BP Pulse Ox
36.9 C 72 16 122/59 91
12/08/23 03:51 12/08/23 04:15 12/08/23 03:51 12/08/23 03:51 12/08/23 04:00
12/06/23 12/07/23 12/08/23
11:59 11:59 11:59
Actual Weight 103.1 kg 103.7 kg
12/08/23 04:02
12/08/23 04:02
PT 14.1 Sec (11.4-14.6) 11/29/23 12:11
INR 1.08 11/29/23 12:11
APTT 30.0 Sec (23.4-35.0) 11/29/23 12:11
11/29/23
12:11
Hcx-O-Mncfhfmpegd Pept 388
Physical Exam
Constitutional: No acute distress and Comfortable
EENT: Anicteric and Moist mucous membranes
Cardiovascular: Rhythm & rate is regular, Pedal edema present, JVD present, S1S2 is normal and Murmur/rub/gallop absent
Respiratory: Respiratory effort normal and Other (Decreased at the bases.)
GI: Soft, Distention absent, Flat, Non tender and Normal bowel sounds
Neuro/Psych: AO x 3
Other: Cath Site (Bilateral LE access sites are C/D/I.)
Data Reviewed
-
Date of Service: December 08, 2023
Medical Decision Making: Reviewed Test Results, Independent Historian Assessment, Test Interpretation and Review of Case with other Provider
EKG: Tracing Personally Visualized and interpreted and Report Reviewed by me
Echo: Tracing Personally Visualized and interpreted and Report Reviewed by me
X-Ray/CT/US/MRI/NUC/PET: Image Personally Visualized and interpreted and Report Reviewed by me
Medical Tests (PFT, Pathology etc): Image Personally Visualized and interpreted and Report Reviewed by me
Labs: Labs Reviewed by me
[2023-12-08 07:42] VITALS: BP 107/51
[2023-12-08] MEDS: TOPROL XL PO (09:39)
[2023-12-08] MEDS: FLOMAX PO (09:39)
[2023-12-08] MEDS: ZESTRIL 20 MG PO (09:40)
[2023-12-08] MEDS: VITAMIN D3 (cholecalciferol) 25 MCG PO (09:40)
[2023-12-08] MEDS: LOW STRENGTH ASPIRIN 81 MG PO (09:40)
[2023-12-08] MEDS: THERAGRAN 1 TABLET PO (09:41)
[2023-12-08] MEDS: LASIX 40 MG IV (09:41)
[2023-12-08] MEDS: NORVASC 5 MG PO (09:41)
[2023-12-08] MEDS: VITAMIN B-12 1000 MCG PO (09:41)
[2023-12-08] MEDS: FLUSH (NSS) 1 FLUSH IV (09:43)
[2023-12-08 11:16] VITALS: BP 108/48
[2023-12-08 11:27] VITALS: BP 119/53
[2023-12-08 11:30] VITALS: BP 108/48; BP 119/53; PULSE 58; O2SAT 91
--- NOTE | 2023-12-08 11:36 | CM ---
CM following for DC planning needs.
Met w/ patient, son at bedside. Reviewed DC plan for home w/ CT Transitional Care RN. Reviewed post op restrictions/ follow up Cardiology appt.
Pt. has transport home.
Plan: HOME w/ CT Transitional Care RN
--- NOTE | 2023-12-08 12:32 | W.PN.ANS.POP ---
Anesthesia Post Operative
- Anesthesia Post Op Note
Vital Signs Stable-See Nursing Note: Yes
Airway Patent: Yes
Adequate Pain Control: Yes
Change in Mental Status: No
Current Postoperative Nausea & Vomiting: No
Anesthesia Complications: No
General Anesthetic Recall: No
Unplanned Admission: No
Post Op Hydration Adequate: Yes
--- NOTE | 2023-12-08 13:06 | PTCARENOTE ---
received patient this am from previous shift, patient is presently sitting up in chair, ambulating with assist x 1 to restroom. monitor shows NSR, VSS. bilat. groins dsg. D/I, distal pulses palpable. echo completed at bedside.
--- NOTE | 2023-12-08 13:28 | W.DCSUMMARY ---
Documented by User: Ainsley Garcia PA-C 12/08/23 13:28
Discharge Summary
Discharge Data
Date of Admission: 12/07/23
Date of Discharge: 12/08/23
-
Pending Results: No
Hospital Course
Primary care physician:
Outpatient energy systems laboratory director:
Inpatient consultants:
Procedures:
1.
Primary Diagnosis:
1.
Secondary Diagnoses:
1.
HPI:
Hospital course:
Home medication changes:
Discharge Plan
-
Patient Disposition: Home (Routine Discharge)
Discharge Diagnosis/Procedures: TF TAVR
Condition: Good
Diet: Low Fat, Low Cholesterol and 2 Gram Sodium
Activity: As tolerated
Driving Restrictions: No driving for 1 week
Bathing Restrictions: OK to Shower
Blood Work: BMP in 1 week
Others Tests: Your 30-day echocardiogram is scheduled for 01/08/2024 15:[address] [facility]
Other Services: Cardiac Rehab
Wound Care: no lotions, powders, or creams to puncture sites
Specialty Instructions: Weigh Daily- Call MD for wt gain/loss 3 lbs overnight/5 lbs in 1 week
Referrals:
CT Transitional Care Nurse [Outside] (The Cardiothoracic Transitional Care Nurse will call you to set up a visit in 1-2 days.)
[facility] [Outside] - 01/01/24 10:00 am
(Cardiac Rehab Orientation appointment is on 01/01/24 at 10:00 am
The Cardiac Rehab gym is located on the first floor of the [facility].)
Yessenia Cruz NP [Specified Professional Personl] - 01/04/24 11:00 am (* your appointment with Dr. Gonzalez on 12/24 was cancelled and changed to this *)
Bruna Yung DO [Family Provider] -
Prescriptions:
New
acetaminophen 325 mg Tablet
650 mg PO Q6HPRN PRN (Reason: ADAMS, mild pain, or fever >101F) Qty: 0 0RF
lovastatin 40 mg tablet
40 mg PO QPM Qty: 30 1RF
furosemide [Lasix] 40 mg tablet
40 mg PO DAILY Qty: 30 1RF
Continued
amlodipine 5 mg Tablet
5 mg PO DAILY
tamsulosin 0.4 mg Capsule
0.4 mg DAILY
benazepril 20 mg Tablet
20 mg PO DAILY
cholecalciferol (vitamin D3) [Vitamin D3] 25 mcg (1,000 unit) Tablet
25 mcg PO DAILY
Glucos Chond Cplx Advanced 750 mg-100 mg- 125 mg-1.65 mg Tablet
2 tab PO DAILY
omega 6-grl-cyj-fish oil [Fish Oil] 1,200 (144-216) mg Capsule
1,200 cap PO BID AT 0800,1600
cyanocobalamin (vitamin B-12) 1,000 mcg Tablet
1,000 mcg PO DAILY
aspirin 81 mg Tablet,Chewable
81 mg PO DAILY
qxujoyjqqlhc-hrqyiarn-vkopeg Tablet
1 tab PO DAILY
metoprolol succinate [Toprol XL] 50 mg tablet extended release 24 hr
50 mg PO DAILY
Discontinued
lovastatin 10 mg Tablet
10 mg PO QPM
furosemide [Lasix] 20 mg tablet
20 mg PO QPM
Discharge Orders:
Discharge Patient (As Directed); Ordered 12/08/23
Ordered By: Ainsley Garcia
Care Plan Goals
Care Plan Goals:
Problem: Readiness for enhanced knowledge related to diagnosis and treatment plan
Goal: Understand your diagnosis and treatment plan needs, including medications if applicable.
Instructions: Know your diagnosis, underlying causes and treatment plan options, including medications if applicable. Consult with your health care team to learn about your diagnosis and treatment plan, including medications if applicable.
Discharge Date and Time
Print Language: BURUNDIAN

Documented by User: Lb Germain PA-C 12/08/23 13:48
Discharge Summary
Discharge Data
Date of Admission: 12/07/23
Date of Discharge: 12/08/23
Hospital Course
Primary care physician:Dilshad
Outpatient energy systems laboratory director: Carlos
Inpatient consultants: [facility] brizuela.
Procedures:
1. Right transfemoral transaortic valve replacement with 29 mm Bowling OUSMANE 3
Primary Diagnosis:
1. Severe symptomatic aortic stenosis
Secondary Diagnoses:
1. Hypertension
2. Prostate cancer
3. Basal cell carcinoma
4. Stage II diastolic dysfunction
5. Hyperlipidemia
6. Peripheral neuropathy
7. Insomnia
8. Bilateral hip replacement
9. Osteoarthritis/degenerative joint disease
HPI: Patient is a 83-year-old male with a diagnosis of severe aortic stenosis. He was seen in consultation by Dr. Scott Amin who recommended aortic valve replacement. Patient was evaluated for TAVR and deemed to be an acceptable candidate.
Hospital course: Mr. Pineda was admitted to [facility] on the morning of 12/07/2023 where later that morning he was brought to the cardiac Technology Sales Specialist where he underwent right transfemoral TAVR implantation with number 29 mm Bowling OUSMANE 3
valve. He tolerated procedure well and was returned to the IVU in hemodynamically stable condition. He is not on any drips his groins were clean and dry without hematoma. Plan was to continue aspirin only. His first night in the IVU was
uneventful. The following morning he continued in sinus rhythm his EKG was without change. Follow-up echo showed a well-seated TAVR valve. Morning chest x-ray was essentially clear. Bilateral groins were clean and dry without hematoma patient
was able to ambulate safely. He was able to be discharged on the afternoon of 12/08/2023. He was afebrile blood pressure 122/59 heart rate 62 and room air pulse ox was 91%.
Discharge labs white blood cell count 14.6, hemoglobin 13, hematocrit 41, platelets [id number], BUN 22 creatinine 1.1
He was given a full set of discharge instructions and will have a repeat echo performed in 1 month.
BMP will be checked in 1 week.
Home medication changes:
Atorvastatin increased to 40 mg daily
Lasix increased to 40 mg daily
Discharge Plan
-
Patient Disposition: Home (Routine Discharge)
Discharge Diagnosis/Procedures: TF TAVR
Condition: Good
Diet: Low Fat, Low Cholesterol and 2 Gram Sodium
Activity: As tolerated
Driving Restrictions: No driving for 1 week
Bathing Restrictions: OK to Shower
Blood Work: BMP in 1 week
Others Tests: Your 30-day echocardiogram is scheduled for 01/08/2024 15:[address] [facility]
Other Services: Cardiac Rehab
Wound Care: no lotions, powders, or creams to puncture sites
Specialty Instructions: Weigh Daily- Call MD for wt gain/loss 3 lbs overnight/5 lbs in 1 week
Referrals:
CT Transitional Care Nurse [Outside] (The Cardiothoracic Transitional Care Nurse will call you to set up a visit in 1-2 days.)
[facility] [Outside] - 01/01/24 10:00 am
(Cardiac Rehab Orientation appointment is on 01/01/24 at 10:00 am
The Cardiac Rehab gym is located on the first floor of the [facility].)
Yessenia Cruz NP [Specified Professional Personl] - 01/04/24 11:00 am (* your appointment with Dr. Gonzalez on 12/24 was cancelled and changed to this *)
Bruna Yung DO [Family Provider] -
Prescriptions:
New
acetaminophen 325 mg Tablet
650 mg PO Q6HPRN PRN (Reason: ADAMS, mild pain, or fever >101F) Qty: 0 0RF
lovastatin 40 mg tablet
40 mg PO QPM Qty: 30 1RF
furosemide [Lasix] 40 mg tablet
40 mg PO DAILY Qty: 30 1RF
Continued
amlodipine 5 mg Tablet
5 mg PO DAILY
tamsulosin 0.4 mg Capsule
0.4 mg DAILY
benazepril 20 mg Tablet
20 mg PO DAILY
cholecalciferol (vitamin D3) [Vitamin D3] 25 mcg (1,000 unit) Tablet
25 mcg PO DAILY
Glucos Chond Cplx Advanced 750 mg-100 mg- 125 mg-1.65 mg Tablet
2 tab PO DAILY
omega 2-tpo-wmz-fish oil [Fish Oil] 1,200 (144-216) mg Capsule
1,200 cap PO BID AT 0800,1600
cyanocobalamin (vitamin B-12) 1,000 mcg Tablet
1,000 mcg PO DAILY
aspirin 81 mg Tablet,Chewable
81 mg PO DAILY
jzbsgvmdhczz-hcujopzr-sbxoea Tablet
1 tab PO DAILY
metoprolol succinate [Toprol XL] 50 mg tablet extended release 24 hr
50 mg PO DAILY
Discontinued
lovastatin 10 mg Tablet
10 mg PO QPM
furosemide [Lasix] 20 mg tablet
20 mg PO QPM
Discharge Orders:
Discharge Patient (As Directed); Ordered 12/08/23
Ordered By: Ainsley Garcia
Care Plan Goals
Care Plan Goals:
Problem: Readiness for enhanced knowledge related to diagnosis and treatment plan
Goal: Understand your diagnosis and treatment plan needs, including medications if applicable.
Instructions: Know your diagnosis, underlying causes and treatment plan options, including medications if applicable. Consult with your health care team to learn about your diagnosis and treatment plan, including medications if applicable.
Discharge Date and Time
Print Language: BURUNDIAN
--- NOTE | 2023-12-08 14:21 | PTCARENOTE ---
D/C instructions given to patient and son both verbalizes understanding. INT D/C';d, telemetry D/C'd, personal belongings packed and sent home with patient. D/C to home via wc accompanied by staff.
== END 2023-12-08 14:32 | disposition home or self-care (01) | DRG 266 ==
LOC: IVU 05:24
PROVIDERS: Physician Assistant Surgical; ADMITTING PHYSICIAN Thoracic Surgery (Cardiothoracic Vascular Surgery); FAMILY PHYSICIAN Student in an Organized Health Care Education/Training Program
PROC: 02RF38Z Replacement of Aortic Valve with Zooplastic Tissue, Percutaneous Approach (ICD-10-PCS; 2023-12-07)
DX: I35.0 Nonrheumatic aortic (valve) stenosis (principal); Z00.6 Encounter for examination for normal comparison and control in clinical research program; I50.43 Acute on chronic combined systolic (congestive) and diastolic (congestive) heart failure; I13.0 Hypertensive heart and chronic kidney disease with heart failure and stage 1 through stage 4 chronic kidney disease, or unspecified chronic kidney disease; G62.9 Polyneuropathy, unspecified; E78.5 Hyperlipidemia, unspecified; G47.09 Other insomnia; I25.10 Atherosclerotic heart disease of native coronary artery without angina pectoris; N18.31 Chronic kidney disease, stage 3a; R73.03 Prediabetes; M19.90 Unspecified osteoarthritis, unspecified site; Z79.82 Long term (current) use of aspirin; Z79.899 Other long term (current) drug therapy; Z85.46 Personal history of malignant neoplasm of prostate; Z85.828 Personal history of other malignant neoplasm of skin
CPT/HCPCS: 93308; 33361; 36415; 71045; 71046; 80048; 80053; 81003; 82248; 83880; 85025; 85027; 85347; 85610; 85730; 86850; 86900; 86901; 87070; 93005; 93306; 93321; 93325; C1760; C1769; C1894; Q9967

== ENCOUNTER → 2023-12-15 07:40 | Outpatient (REF) | payer MEDICARE, OTHER, SELFPAY ==
[2023-12-15 10:11] LABS: Blood Urea Nitrogen 23 mg/dl (9-20); Calcium 9.3 mg/dl (8.4-10.2); Carbon Dioxide 30 mmol/L (22-30); Chloride 101 mmol/L (98-107); Glucose 93 mg/dl (70-99); Potassium 4.3 mmol/L (3.5-5.1); Sodium 140 mmol/L (135-145); eGFR 59.63
[2023-12-15 10:39] LABS: PSA, Total - Diagnostic 0.14 ng/ml (0.0-4.0)
== END ==
LOC: REG 07:40
PROVIDERS: ATTENDING PHYSICIAN Radiology Radiation Oncology; FAMILY PHYSICIAN Student in an Organized Health Care Education/Training Program; REFERRING PHYSICIAN Thoracic Surgery (Cardiothoracic Vascular Surgery)
DX: N18.31 Chronic kidney disease, stage 3a (principal); C61 Malignant neoplasm of prostate
CPT/HCPCS: 36415; 80048; 84153

== ENCOUNTER 2024-01-01 15:09 | Outpatient (RCR) | payer MEDICARE, OTHER, SELFPAY | END 2024-01-01 23:59 | disposition home or self-care (01) | LOC: CRHB 15:09 | PROVIDERS: ATTENDING PHYSICIAN Internal Medicine | DX: Z95.4 Presence of other heart-valve replacement (principal) | CPT/HCPCS: G0422; G0423 ==

== ENCOUNTER → 2024-01-08 15:03 | Outpatient (REF) | payer MEDICARE, OTHER, SELFPAY | LOC: RCS 15:03 | PROVIDERS: ATTENDING PHYSICIAN Internal Medicine; FAMILY PHYSICIAN Student in an Organized Health Care Education/Training Program | DX: I35.0 Nonrheumatic aortic (valve) stenosis (principal) | CPT/HCPCS: 93306 ==

== ENCOUNTER → 2024-01-23 07:16 | Outpatient (REF) | payer MEDICARE, OTHER, SELFPAY ==
[2024-01-23 08:29] LABS: Blood Urea Nitrogen 18 mg/dl (9-20); Calcium 9.4 mg/dl (8.4-10.2); Carbon Dioxide 30 mmol/L (22-30); Chloride 105 mmol/L (98-107); Glucose 96 mg/dl (70-99); Sodium 141 mmol/L (135-145); eGFR 54.17
[2024-01-23 08:39] LABS: Potassium 4.6 mmol/L (3.5-5.1)
== END ==
LOC: REG 07:16
PROVIDERS: ATTENDING PHYSICIAN Nurse Practitioner; FAMILY PHYSICIAN Student in an Organized Health Care Education/Training Program
DX: Z95.2 Presence of prosthetic heart valve (principal); I50.32 Chronic diastolic (congestive) heart failure; R42 Dizziness and giddiness
CPT/HCPCS: 36415; 80048

== ENCOUNTER 2024-02-01 10:35 | Outpatient (RCR) | payer MEDICARE, OTHER, SELFPAY | END 2024-02-01 23:59 | disposition home or self-care (01) | LOC: CRHB 10:35 | PROVIDERS: ATTENDING PHYSICIAN Internal Medicine | DX: Z95.4 Presence of other heart-valve replacement (principal) | CPT/HCPCS: G0422; G0423 ==

== ENCOUNTER 2024-02-29 10:30 | Outpatient (RCR) | payer MEDICARE, OTHER, SELFPAY | END 2024-02-29 23:59 | disposition home or self-care (01) | LOC: CRHB 10:30 | PROVIDERS: ATTENDING PHYSICIAN Internal Medicine | DX: I25.10 Atherosclerotic heart disease of native coronary artery without angina pectoris (principal); Z95.4 Presence of other heart-valve replacement | CPT/HCPCS: G0422; G0423 ==

== ENCOUNTER 2024-04-02 10:54 | Outpatient (RCR) | payer MEDICARE, OTHER, SELFPAY | END 2024-04-02 23:59 | disposition home or self-care (01) | LOC: CRHB 10:54 | PROVIDERS: ATTENDING PHYSICIAN Internal Medicine | DX: Z95.4 Presence of other heart-valve replacement (principal) | CPT/HCPCS: G0422; G0423 ==

== ENCOUNTER 2024-05-02 10:06 | Outpatient (RCR) | payer MEDICARE, OTHER, SELFPAY | END 2024-05-02 23:59 | disposition home or self-care (01) | LOC: CRHB 10:06 | PROVIDERS: ATTENDING PHYSICIAN Internal Medicine; FAMILY PHYSICIAN Student in an Organized Health Care Education/Training Program | DX: I25.10 Atherosclerotic heart disease of native coronary artery without angina pectoris (principal); Z95.4 Presence of other heart-valve replacement | CPT/HCPCS: G0422; G0423 ==

== ENCOUNTER → 2024-06-05 09:14 | Outpatient (REF) | payer MEDICARE, OTHER, SELFPAY | LOC: RCS 09:14 | PROVIDERS: ATTENDING PHYSICIAN Internal Medicine; FAMILY PHYSICIAN Family Medicine | DX: Z95.2 Presence of prosthetic heart valve (principal); I36.1 Nonrheumatic tricuspid (valve) insufficiency; I50.32 Chronic diastolic (congestive) heart failure | CPT/HCPCS: 93306 ==

== ENCOUNTER → 2024-12-03 12:46 | Outpatient (REF) | payer OTHER, SELFPAY ==
[2024-12-03 14:37] LABS: % Basophils 0.6 % (0-2); % Eosinophils 3.6 % (0-6); % Immature Granulocytes 0.4 % (0-0.5); % Lymphocytes 20.8 % (20.5-51.1); % Monocytes 9.3 % (1.7-9.3); % Neutrophils 65.3 % (42.2-75.2); Absolute Basophils 0.1 10^3/uL (0-0.2); Absolute Eosinophils 0.3 10^3/uL (0-0.7); Absolute Lymphocytes 1.7 10^3/uL (1.2-3.4); Absolute Monocytes 0.8 10^3/uL (0.1-0.6); Absolute Neutrophils 5.3 10^3/uL (1.4-6.5); Hematocrit 44.7 % (39.0-52.0); Hemoglobin 14.4 g/dL (13.0-18.0); Mean Corp Hgb Conc. 32.2 g/dL (33.0-37.0); Mean Corpuscular Hgb 30.7 pg (27.0-31.0); Mean Corpuscular Volume 95.3 fL (80.0-94.0); Mean Platelet Volume 9.6 fL (7.4-10.4); Nucleated Red Blood Cells % 0 % (-); Platelet Count 228 10^3/uL (130-400); Red Blood Cell Count 4.69 10^6/uL (4.70-6.10); Red Cell Dist. Width 14.1 % (11.5-14.5); White Blood Cell Count 8.1 10^3/uL (4.8-10.8)
[2024-12-03 15:02] LABS: ALT (SGPT) 22 U/L (0-50); AST (SGOT) 26 U/L (17-59); Albumin 4.2 g/dl (3.5-5.0); Alkaline Phosphatase 56 U/L (38-126); Blood Urea Nitrogen 19 mg/dl (9-20); Calcium 9.4 mg/dl (8.4-10.2); Carbon Dioxide 29 mmol/L (22-30); Chloride 106 mmol/L (98-107); Glucose 85 mg/dl (70-99); HDL Cholesterol 48 mg/dl; LDL Cholesterol, Calculated 57 mg/dl; Potassium 4.5 mmol/L (3.5-5.1); Sodium 143 mmol/L (135-145); Total Bilirubin 0.8 mg/dl (0.2-1.3); Total Cholesterol 124 mg/dl (50-199); Total Protein 6.7 g/dl (6.3-8.2); Triglyceride 95 mg/dl (10-149); Very Low Density Lipoprotein 19 mg/dl (0-30); eGFR > 60.00
[2024-12-04 10:13] LABS: Glycohemoglobin (HgbA1c) 5.6 % (4.0-5.6)
[2024-12-04 11:55] LABS: PSA, Total - Diagnostic 0.13 ng/ml (0.0-4.0)
== END ==
LOC: REG 12:46
PROVIDERS: ATTENDING PHYSICIAN Radiology Radiation Oncology; FAMILY PHYSICIAN Family Medicine
DX: Z00.00 Encounter for general adult medical examination without abnormal findings (principal); R73.03 Prediabetes; E78.00 Pure hypercholesterolemia, unspecified; I10 Essential (primary) hypertension; Z13.29 Encounter for screening for other suspected endocrine disorder; C61 Malignant neoplasm of prostate
CPT/HCPCS: 36415; 80053; 80061; 83036; 84153; 84443; 85025

== ENCOUNTER → 2024-12-18 10:56 | Outpatient (REF) | payer OTHER, SELFPAY | LOC: HWRCS 10:56 | PROVIDERS: ATTENDING PHYSICIAN Internal Medicine; FAMILY PHYSICIAN Family Medicine | DX: I10 Essential (primary) hypertension (principal); Z95.2 Presence of prosthetic heart valve; I25.10 Atherosclerotic heart disease of native coronary artery without angina pectoris; I36.1 Nonrheumatic tricuspid (valve) insufficiency; I50.32 Chronic diastolic (congestive) heart failure | CPT/HCPCS: 93306 ==

== ENCOUNTER 2025-01-16 02:55 | Inpatient (IN) | payer OTHER, SELFPAY ==
[2025-01-15 23:55] VITALS: BP 130/67
[2025-01-15 23:57] VITALS: BP 130/67
[2025-01-16] VITALS (11 sets, daily range): BP systolic 96–155; BP diastolic 55–87; PULSE 58–89; O2SAT 94; BMI 36.6; BMI 35.6
[2025-01-16 00:43] LABS: % Basophils 0.5 % (0-2); % Eosinophils 2.3 % (0-6); % Immature Granulocytes 0.3 % (0-0.5); % Monocytes 8.6 % (1.7-9.3); % Neutrophils 82.3 % (42.2-75.2); Absolute Eosinophils 0.2 10^3/uL (0-0.7); Absolute Lymphocytes 0.5 10^3/uL (1.2-3.4); Absolute Monocytes 0.8 10^3/uL (0.1-0.6); Absolute Neutrophils 7.3 10^3/uL (1.4-6.5); Hematocrit 41.3 % (39.0-52.0); Hemoglobin 13.6 g/dL (13.0-18.0); Mean Corp Hgb Conc. 32.9 g/dL (33.0-37.0); Mean Corpuscular Hgb 30.6 pg (27.0-31.0); Nucleated Red Blood Cells % 0 % (-); Platelet Count 178 10^3/uL (130-400); Red Blood Cell Count 4.44 10^6/uL (4.70-6.10); Red Cell Dist. Width 14.4 % (11.5-14.5); White Blood Cell Count 8.9 10^3/uL (4.8-10.8)
[2025-01-16 00:47] LABS: Blood Urea Nitrogen 20 mg/dl (9-20); Calcium 8.9 mg/dl (8.4-10.2); Carbon Dioxide 24 mmol/L (22-30); Chloride 109 mmol/L (98-107); Estimated Creatinine Clearance 63 ml/min; Glucose 124 mg/dl (70-99); Sodium 141 mmol/L (135-145); eGFR > 60.00
--- NOTE | 2025-01-16 01:25 | ED.GENMED ---
History of Present Illness
General
Chief Complaint: Fall
Source: patient and family
Exam Limitations: none
Time Seen by Provider: 01/16/25 00:04
History of Present Illness
History of Present Illness:
84-year-old male who was adjusting the comforter on his bed when his feet got caught and he fell down to his right side. Complains of pain in the right thigh close to the hip. Denies head injury. No neck or back pain. No vomiting. No numbness
or tingling. Has a history of bilateral hip replacements.
Past History
Past History
ED Past Medical History: HTN, Valvular disease (Aortic stenosis) and Other (Prostate cancer)
Phy Exam
Physical Exam
Physical Exam:
CONSTITUTIONAL Vital signs reviewed, Patient alert and oriented to person, place and time. Well-appearing
HEAD atraumatic, normocephalic.
EYES eyelids normal to inspection, Extraocular muscles intact, Conjunctiva normal, Sclera normal.
NECK normal range of motion, Trachea midline, no jugular venous distention.
RESP no respiratory distress
BACK No obvious deformities
UPPER EXTREMITY Gross Range of motion normal, gross motor strength normal
LOWER EXTREMITY Gross motor strength normal, right lower extremity is externally rotated. Moderate pain with hip flexion and internal and external rotation
NEURO Speech normal, No focal motor deficits include, Abimbola coma scale 15, Memory normal, Cranial Nerves intact to screening exam.
SKIN Skin warm, dry, and normal in color.
PSYCHIATRIC Patient oriented to person place and time, Normal affect..
Course
Orders/Labs/Results
Orders:
Orders
01/16/25 00:00
CR Hip - RT w/wo Pel 2-3 Vw* Urgent
Reason For Exam: pain after fall
Include a pelvis x-ray?: Yes
01/16/25 00:15
Basic Metabolic Panel Urgent
Comment: NO K
Complete Blood Count/With Diff Urgent
01/16/25 01:40
Lower Ext Left wo Contrast CT [CT Lower Ext W/o Iv Cont Lt] Urgent
Comment:
Reason For Exam: R proximal femur fracture
01/16/25 01:57
CT Lower Ext W/o Iv Cont Rt Urgent
Comment: requested by ortho
Reason For Exam: fall, periprosthetic fx
Abnormal Lab Results
01/16/25
00:15
RBC 4.44 L 10^6/uL
(4.70-6.10)
MCHC 32.9 L g/dL
(33.0-37.0)
Absolute Neuts (auto) 7.3 H 10^3/uL
(1.4-6.5)
Absolute Lymphs (auto) 0.5 L 10^3/uL
(1.2-3.4)
Absolute Monos (auto) 0.8 H 10^3/uL
(0.1-0.6)
Neutrophils % 82.3 H %
(42.2-75.2)
Lymphocytes % 6.0 L %
(20.5-51.1)
Chloride 109 H mmol/L
(98-107)
Glucose 124 H mg/dl
(70-99)
01/16/25 00:15
01/16/25 00:15
Vital Signs
Initial and Last Documented VS:
Initial Vital Signs
Temp Pulse Resp BP Pulse Ox
98.1 F 69 19 130/67 92
01/15/25 23:55 01/15/25 23:55 01/15/25 23:55 01/15/25 23:55 01/15/25 23:55
Last Documented Vital Signs
Temp Pulse Resp BP Pulse Ox
98.1 F 67 22 130/67 92
01/15/25 23:55 01/16/25 00:15 01/16/25 00:15 01/15/25 23:57 01/16/25 00:15
MDM/Problems Addressed
Differential Diagnosis Includes:
Hip dislocation, periprosthetic femur fracture
MDM/Problems Addressed:
Periprosthetic femur fracture
*Radiology
Radiology exam reviewed: preliminary read by ED provider (Periprosthetic femur fracture)
*Pulse Oximetry
Patient hypoxic: no
*Critical Care Note
Total Time (30-74mins, 75-104mins- exclusive of procedures): Not Applicable
Data Reviewed
Source: patient and family
Further Testing Considered But Not Given:
, Consider head CT but no signs of head trauma
Patient Management
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
Escalation/DeEscalation of care consider admission/obs:
84-year-old male who presents after fall. Found to periprosthetic fracture. Admit. Case discussed with orthopedics. Original surgery was 25 years ago at [facility], patient does not think his surgeon still practices
ED Attending Note
-
Portions of this chart may have been created with voice recognition software.� Occasional wrong word or��sound alike� substitutions may have occurred due to the inherent limitations of voice recognition software.
Discharge Plan
Departure
Patient Disposition: Admit
Date of Disposition: 01/16/25
Time of Disposition: 01:30
Admit to: Med/Surg
Presentation/result/management discussed w/ accepting MD/DO: Hospitalist
Discharge Problem:
Brittani-prosthetic subtrochanteric femur fracture
Prescriptions:
No Action
amlodipine 5 mg Tablet
5 mg PO DAILY
tamsulosin 0.4 mg Capsule
0.4 mg DAILY
benazepril 20 mg Tablet
20 mg PO DAILY
cholecalciferol (vitamin D3) [Vitamin D3] 25 mcg (1,000 unit) Tablet
25 mcg PO DAILY
Glucos Chond Cplx Advanced 750 mg-100 mg- 125 mg-1.65 mg Tablet
2 tab PO DAILY
omega 0-ilu-pfv-fish oil [Fish Oil] 1,200 (144-216) mg Capsule
1,200 cap PO BID AT 0800,1600
cyanocobalamin (vitamin B-12) 1,000 mcg Tablet
1,000 mcg PO DAILY
aspirin 81 mg Tablet,Chewable
81 mg PO DAILY
dmpkofzwdgpq-jyvljidx-wsedve Tablet
1 tab PO DAILY
metoprolol succinate [Toprol XL] 50 mg tablet extended release 24 hr
50 mg PO DAILY
acetaminophen 325 mg Tablet
650 mg PO Q6HPRN PRN (Reason: ADAMS, mild pain, or fever >101F) Qty: 0 0RF
lovastatin 40 mg tablet
40 mg PO QPM Qty: 30 1RF
furosemide [Lasix] 40 mg tablet
40 mg PO DAILY Qty: 30 1RF
Referrals:
Luca Dominique, DO [Family Provider] -
Interventions
Interventions:
*Risk Screen - Suicide Last Done: 01/15/25 23:55
*General Assessment Last Done: 01/15/25 23:55
*Neglect/Abuse Screening Last Done: 01/15/25 23:55
*ED- Fall Risk Assessment Last Done: 01/16/25 00:13
*ED COVID-19 Vaccine History Last Done: 01/16/25 00:13
ED-Musculoskeletal Assessment Last Done: 01/16/25 00:06
ED- Neurological Assessment Last Done: 01/16/25 00:06
ED-Skin Assessment Last Done: 01/16/25 00:06
Discharge Date and Time
Print Language: ESTONIAN
--- NOTE | 2025-01-16 02:37 | HPS.HSE ---
Family Physician
-
Family Physician: Luca Dominique
Chief Complaint
-
Fall
History of Present Illness
84-year-old male with past medical history of aortic stenosis status post TAVR, hypertension, prostate cancer status post treatment, peripheral neuropathy, insomnia presenting to the emergency department following a fall to his right side.
He reported that he was adjusting the comforter on his bed when his feet got caught and he fell down to his right side. Complains of pain in the right thigh close to the hip. Denies head injury. No neck or back pain. No vomiting. No numbness or
tingling. Has a history of bilateral hip replacements.
When I spoke to the patient he was on oxygen. He was satting 94% on 2 L. He stated that he started having a cough about 2 days ago. He did see a PMD yesterday and was told that he had allergies. Patient denies having any fevers or chills. The
cough does sound slightly worse to me. He states that he has not been taking his Lasix because he does not know when he needs to go to the bathroom.
In the emergency department he was afebrile pressure was 120 x 16 with a pulse of 70 and was satting 98% on room air.
CBC was unremarkable. Electrolytes were normal. BUN/creatinine were stable glucose was normal.
X-ray with periprosthetic femur fracture.
Medical History
Past Medical History
Past Medical History: Reports Cancer (prostate, basal cell), HTN, Valvular Disease (aortic stenosis s/p TAVR) and Other (insomnia, HLD, peripheral neuropathy, measles, mumps, chicken pox.)
Past Surgical History: Reports Appendectomy, Cardiac (s/p TAVR) and Orthopedic (Left and right THR)
Additional Past Surgical History:
benign kidney growth, hernia repair
Social History
Tobacco: Non-smoker
Alcohol: None
Drug: None
Personal:
Living: Alone
Employment: Retired
Family History
Family History: Not pertinent
Allergies / Home Medications
Allergies reflects when Allergies were last updated in [facility].
Home Medications with original date entered in [facility]
Allergy/Medication List:
amLODIPine Besylate 5 MG Tablet 1 tablet Orally Once a day
Aspirin 81 81 MG Tablet Delayed Release 1 tablet Orally Once a day
Benazepril HCl 20 MG Tablet 1 tablet Orally Once a day
Centrum Silver(Multiple Vitamins-Minerals) - Tablet as directed Orally
Fish Oil 1200 MG Capsule Delayed Release 1 capsule Orally Once a day, Notes: 2x day
Gpqmvm-Xetvettpr-WFB Complex(Misc Natural Products) - Tablet as directed Orally Twice a Day
Lasix(Furosemide) 20 MG Tablet 1 tablet Orally Once a day
Lovastatin 10 MG Tablet 1 tablet with the evening meal Orally Once a day
Tamsulosin HCl 0.4 MG Capsule 1 capsule Orally Once a day
Toprol XL 50 MG Tablet Extended Release 1 tablet Orally Once a day
Vitamin B12 1000 MCG Tablet Extended Release 1 tablet Orally Once a day
Vitamin D3(Cholecalciferol) 674170 UNIT/GM Powder as directed
Review of Systems
-
History Source: Patient
Constitutional: Reports No Symptoms
EENT: Reports No Symptoms
Respiratory: Reports No Symptoms
Cardiac: Reports No Symptoms
Abdomen/GI: Reports No Symptoms
: Reports No Symptoms
Musculoskeletal: Reports Joint Pain
Skin: Reports No Symptoms
Neurological: Reports No Symptoms
Hematologic/Lymphatic: Reports No Symptoms
Psych: Reports No Symptoms and Calm
Physical Exam
Vital Signs
Vital Signs
Temp Pulse Resp BP Pulse Ox
98.1 F 67 22 130/67 92
01/15/25 23:55 01/16/25 00:15 01/16/25 00:15 01/15/25 23:57 01/16/25 00:15
Physical Exam
General: Well Developed, Well Nourished and No Apparent Distress
HEENT: NormoCephalic and Moist mucous membranes
Respiratory: Crackles; No Wheezes
Cardiac: Regular Rhythm
Breast: Deferred by me
GI: Non Tender
Rectal: Deferred by Provider
Genito-urinary: Deferred by me
Musculoskeletal: No Clubbing, No Cyanosis, Edema, Left Lower Extremity (Trace to 1+) and Edema, Right Lower Extremity (Trace to 1+)
Skin: Warm and Dry
Neuro: Awake, Alert, Oriented and AO x 3
Psych: Calm
Laboratory Results
-
01/16/25 00:15
01/16/25 00:15
Laboratory Results
Total Bilirubin Cancelled 01/16/25 00:15
AST Cancelled 01/16/25 00:15
ALT Cancelled 01/16/25 00:15
Alkaline Phosphatase Cancelled 01/16/25 00:15
Data Reviewed
-
Diagnostic Radiology: Image Personally Visualized and interpreted
Lab Data: Labs Reviewed by me
Old Records: Reviewed
Impression/Plan
-
IMPRESSION:
84-year-old male who presents after fall. Found to periprosthetic fracture. Case discussed with orthopedics. Original surgery was 25 years ago at [facility], patient does not think his surgeon still practices
PLAN:
Fracture
- admit to med/surg
- NPO at breakfast
- no thinners
- no weight bearing for now
- DVT PPX with SCDs
- pain control
- urinary retention protocol
HTN
- continue toprolol XL 50
- continue amlodipine with hold parameters
- continue benazeparil with hold parameters
- continue tamsulosin
Hypoxia - recent cough, told he had allergies yesterday. On 2 L in ED with 94%
- xray w/o acute infiltrate, effusion. No fevers and no leuks
- has not been on taking his diuretics due to comfort and has 1+ edema in LE bilaterally with crackles. lasxi 20 iv x 1 given
- continue his oral lasix for now
- hold maintenance fluids for now,
- incentive spirometry
Code status - Full Code
[2025-01-16] MEDS: LASIX 20 MG IV (03:54)
[2025-01-16] MEDS: FLUSH (NSS) 1 FLUSH IV (03:58)
[2025-01-16] MEDS: TYLENOL 650 MG PO ×5 (04:26→21:30)
--- NOTE | 2025-01-16 05:01 | PTCARENOTE ---
Rec'd pt from ER. Transferred over to the bed. Pt complains of pain only when moving or coughing. Was given his scheduled Tylenol. SCDs applied per order. CXR and CT scan results pending. oriented to unit. Call rainey in reach.
--- NOTE | 2025-01-16 07:54 | CON.ORTHO ---
Consultation
-
Date/Time Consultation Requested: 01/15/2025
Date/Time Consultation Performed: 01/16/2025; 0700
Requesting Provider: unknown
Performing Provider: Little Lenz PA-C
Reason for Consultation: Right periprosthetic femur fracture
Consultation - Orthopedics
History
Mr. Pineda is an 84-year-old male with past medical history of aortic stenosis status post TAVR, hypertension, prostate cancer status post treatment, peripheral neuropathy, insomnia and right IKE performed at [facility] 20-25 years ago. He reports
he was pulling his devet off the bed when he tripped on it and fell onto his right side. He was unable to get up off the ground. He was brought to via EMS where x-rays and CT scan revealed a periprosthetic right femur fracture. He is resting
comfortably in bed at present, and denies any significant pain currently. He denies pain elsewhere following the fall.
Allergies / Home Medications
Allergy/AdvReac Type Severity Reaction Status Date / Time
adhesive Allergy Rash Verified 01/15/25 23:54
levofloxacin [From Levaquin] Allergy Rash Verified 01/15/25 23:54
�Medication �Instructions �Recorded
amlodipine 5 mg tablet 5 mg PO DAILY Blood Pressure 10/05/23
benazepril 20 mg tablet 20 mg PO DAILY Blood Pressure 10/05/23
cholecalciferol (vitamin D3) 25 25 mcg PO DAILY Supplement 10/05/23
mcg (1,000 unit) tablet (Vitamin
D3)
atzhwaakdui-reupeouwq-rdma255-hyal 2 tab PO DAILY Supplement 10/05/23
750 mg-100 mg-125 mg-1.65 mg
tablet (Glucosamine Chondroit
Complx Advan)
omega 7-xdp-mhn-fish oil 1,200 mg 1,200 cap PO BID AT 0800,1600 10/05/23
(144 mg-216 mg) capsule (Fish Oil) Supplement
tamsulosin 0.4 mg capsule 0.4 mg DAILY prostate/urinarry 02/01/24
issue
aspirin 81 mg chewable tablet 81 mg PO DAILY Blood Clot 11/28/23
Prevention/Tx
cyanocobalamin (vitamin B-12) 1,000 mcg PO DAILY Supplement 11/28/23
1,000 mcg tablet
metoprolol succinate 50 mg 50 mg PO DAILY Blood Pressure 11/28/23
tablet,extended release 24 hr
(Toprol XL)
nzquutjchmwa-smnnncji-wocjwr tablet 1 tab PO DAILY Supplement 11/28/23
acetaminophen 325 mg tablet 650 mg (2 x 325 mg) PO Q6HPRN PRN 12/08/23
ADAMS, mild pain, or fever >101F #0
tabs
furosemide 40 mg tablet (Lasix) 40 mg PO DAILY Fluid 12/08/23
retention/Swelling #30 tabs
lovastatin 40 mg tablet 40 mg PO QPM High cholesterol #30 12/08/23
tabs
Vital Signs / Lab Results
Temp Pulse Resp BP Pulse Ox
98.6 F 62 20 155/87 95
01/16/25 04:24 01/16/25 04:24 01/16/25 04:24 01/16/25 04:24 01/16/25 04:53
01/16/25 00:15
01/16/25 00:15
XR Right Hip 01/16/2025 reveals an oblique periprosthetic right femur fracture. Total hip replacement in place. Fracture extends about the stem of the hip replacement.
Directed exam of the right lower extremity reveals no significant erythema, ecchymosis or lesions. There is some edema. No significant tenderness to palpation throughout the hip or thigh. Calf soft and nontender. Patient able to wiggle toes, plantar
and dorsiflex ankle. Neurovascularly intact distally.
Assessment / Plan
Right periprosthetic femur fracture; right IKE 20-25 years ago
--Unfortunately, Mr. Pineda sustained a periprosthetic femur fracture in his fall. The images were reviewed with Dr. Barrios who believes an initial course of non-operative management is reasonable. On discussion with patient this morning, he was
hoping for non-operative intervention. We can begin with trial of touch down weight bearing and physical therapy. We will need to monitor his fracture closely with serial imaging. If he struggles with physical therapy/pain, or if his fracture
displaces, then surgical intervention will be indicated, and this could potentially be performed next Monday under the direction of Dr. Barrios.
--Touch down weight bearing to RLE. We appreciate the assistance of PT/OT.
--Pain control prn.
--Orthopedics will continue to follow. Please reach out with any orthopedic questions or concerns.
[2025-01-16] MEDS: ZESTRIL 20 MG PO (08:47)
[2025-01-16] MEDS: LASIX 40 MG PO (08:54)
[2025-01-16] MEDS: FLOMAX 0.4 MG PO (08:54)
[2025-01-16] MEDS: TOPROL XL 50 MG PO (08:54)
[2025-01-16] MEDS: DILAUDID 0.25 MG IV ×2 (08:56→15:57)
--- NOTE | 2025-01-16 09:29 | W.PN.HOSP.TC ---
Today's Communication/Plan
-
Await orthopedics input
Podiatry consult
Mucinex
PT/OT
Assessment / Plan
Assessment / Plan
Gen-AAOx3, NAD
HEENT-NC, AT, anicteric, clear oral mm
Neck-supple
CV-reg, no M, +S1/S2
Lungs-clear B/L
Abd-soft, NT, ND
Ext-no edema
Musculoskeletal-no cyanosis, clubbing
Skin-warm and dry, long and curled toenails on both feet
Neuro-grossly non-focal
Psych-calm, cooperative
Acute traumatic right proximal femur periprosthetic fracture -due to fall and underlying osteoporosis. Displacement noted on CT scan. Original hip replacement was 25 years ago at [facility].
Currently n.p.o. awaiting orthopedics input regarding operative versus nonoperative management. Continue analgesics. PT/OT.
Acute bronchitis -chest x-ray shows mild diffuse interstitial prominence. Cannot rule out chronic interstitial lung disease. Clinically does not appear to be in heart failure. Treat supportively for bronchitis.
Last echocardiogram was 12/18/2024, normal biventricular size and systolic function without regional wall motion abnormality. Well-seated TAVR. Mild pulmonary hypertension. No significant change compared to June 2024 study.
Aortic stenosis -s/p TAVR.
Essential hypertension -stable.
history of prostate cancer
Hyperlipidemia -atorvastatin.
Chronic peripheral neuropathy
Obesity due to excess calories
Full code
Anticipated Discharge: 24 - 48 hours
Subjective/Interval History
-
Date of Service: January 16, 2025
Patient seen and examined. No hip pain when lying still but does have pain with movement. Also has hip pain with coughing.
Objective Data
-
Labs:
Laboratory Results
01/16/25
00:15
WBC 8.9
Hgb 13.6
Hct 41.3
Plt Count 178
Sodium 141
Potassium
Chloride 109 H
Carbon Dioxide 24
BUN 20
Creatinine 1.0
Glucose 124 H
Calcium 8.9
Total Bilirubin Cancelled
AST Cancelled
ALT Cancelled
Alkaline Phosphatase Cancelled
Vital Signs:
Vital Signs
Temp Pulse Resp BP Pulse Ox
98.3 F 65 18 124/58 93
01/16/25 07:15 01/16/25 08:54 01/16/25 07:15 01/16/25 08:54 01/16/25 07:15
I&O
01/15/25 01/16/25 01/17/25
06:59 06:59 06:59
Output Total 325 / 325
Balance -325 / -325
Review of Systems
-
History Source: Patient
All other systems: Reviewed and negative
--- NOTE | 2025-01-16 15:15 | W.CS.POD ---
Consult Summary - Podiatry
-
84 yo non diabetic male admitted for the evaluation of Rt hip fracture , Podiatry has been asked for C evaluation, He denies any pedal complaints, per his daughter last time he had any foot care was almost 2 yrs ago,
HE is in no acute distress, no fever, chills. Comfortable sitting in chair.
Intact NVS B/l feet
All toe nails are thick, elongated, incurvated ,dystrophic with fungal appearance, No erythema, no open ulcerations, no calluses b/l feet
No major osseous deformities noted
A/p: Onychomycosis
Onychogryphosis
Plan : PT evaluated
at bedside, debrided all toe nails
D/W his daughter that he will need a podiatry visit every 4 to 5 mos
Gave my office info if she can bring him in the future
--- NOTE | 2025-01-16 18:21 | PTCARENOTE ---
Assumed care of pt from previous nurse. pt with pain to right hip with movement, relieved with prn medication. Pt call rainey is within reach, pt rings ben. will cont to monitor.
[2025-01-16] MEDS: LIPITOR 10 MG PO (18:34)
[2025-01-16] MEDS: LOVENOX 40 MG SC (18:35)
[2025-01-16] MEDS: SENOKOT 17.2 MG PO (21:29)
[2025-01-16] MEDS: COLACE 100 MG PO (21:29)
[2025-01-17] MEDS: TYLENOL 650 MG PO ×6 (00:46→20:59)
[2025-01-17 06:00] VITALS: BMI 36.1
[2025-01-17 07:35] VITALS: BP 168/65
--- NOTE | 2025-01-17 08:24 | W.PN.UPDATE ---
Update Note
Progress Note Update
84-year-old male with periprosthetic right total hip arthroplasty fracture done remotely at [facility].
Discussed plan of care with patient and daughter
- Imaging shows suspected [place] B1 periprosthetic fracture with stable implant; recommend for trial of nonoperative management
- Touchdown weightbearing and trial physical therapy. Repeat x-rays 01/18 or 01/19 to monitor for evidence of instability of prosthesis or fracture segments
- DVT PPx per primary
- Diet per primary
- Orthopedic surgery will continue to follow
[2025-01-17] MEDS: LASIX 40 MG PO (08:37)
[2025-01-17] MEDS: TOPROL XL 50 MG PO (08:37)
[2025-01-17] MEDS: COLACE 100 MG PO (08:37)
[2025-01-17] MEDS: FLOMAX 0.4 MG PO (08:38)
[2025-01-17] MEDS: ZESTRIL 20 MG PO (08:38)
[2025-01-17] MEDS: SENOKOT 17.2 MG PO (08:39)
[2025-01-17] MEDS: FLUSH (NSS) 1 FLUSH IV (08:40)
[2025-01-17] MEDS: DESENEX/MITRAZOL/ZEASORB 1 APPLIC TOPICAL ×2 (10:13→20:30)
[2025-01-17 10:59] VITALS: O2SAT 97
[2025-01-17 11:00] VITALS: O2SAT 99
--- NOTE | 2025-01-17 13:00 | W.PN.HOSP.TC ---
Addendum entered and electronically signed by Joseph Molina DO 01/17/25 15:02:
I spoke with Orthopedics team. Xrays today without significant change in fracture.
Cleared for discharge by orthopedics.
Ortho appointment in discharge instructions.
Updated patient's son Sal on the phone.
Informed by case management that bed available in [facility] tomorrow, waiting on insurance auth.
Original Note:
Today's Communication/Plan
-
Discharge
Assessment / Plan
Assessment / Plan
Gen-AAOx3, NAD
HEENT-NC, AT, anicteric, clear oral mm
Neck-supple
CV-reg, no M, +S1/S2
Lungs-clear B/L
Abd-soft, NT, ND
Ext-no edema
Musculoskeletal-no cyanosis, clubbing
Skin-warm and dry, long and curled toenails on both feet
Neuro-grossly non-focal
Psych-calm, cooperative
Acute traumatic right proximal femur periprosthetic fracture -due to fall and underlying osteoporosis. Displacement noted on CT scan. Original hip replacement was 25 years ago at [facility].
Orthopedics recommends nonoperative approach. Continue PT/OT. Continue analgesics. Outpatient follow-up with orthopedics.
Acute bronchitis -chest x-ray shows mild diffuse interstitial prominence. Cannot rule out chronic interstitial lung disease. Clinically does not appear to be in heart failure. Treat supportively for bronchitis.
Last echocardiogram was 12/18/2024, normal biventricular size and systolic function without regional wall motion abnormality. Well-seated TAVR. Mild pulmonary hypertension. No significant change compared to June 2024 study.
Aortic stenosis -s/p TAVR.
Essential hypertension -stable.
history of prostate cancer
Hyperlipidemia -atorvastatin.
Chronic peripheral neuropathy
Obesity due to excess calories
Full code
Dispo - medically stable for discharge to SNF. Case management aware. He lives in [facility].
Anticipated Discharge: Today
Subjective/Interval History
-
Date of Service: January 17, 2025
Patient seen and examined. Pain under control with analgesics. No other complaints.
Objective Data
-
Vital Signs:
Vital Signs
Temp Pulse Resp BP Pulse Ox
98.2 F 72 18 168/65 90
01/17/25 07:35 01/17/25 07:35 01/17/25 07:35 01/17/25 08:38 01/17/25 07:35
I&O
01/16/25 01/17/25 01/18/25
06:59 06:59 06:59
Output Total 325 / 325 775 / 775
Balance -325 / -325 -775 / -775
Review of Systems
-
History Source: Patient
All other systems: Reviewed and negative
[2025-01-17 15:15] VITALS: BP 116/56
--- NOTE | 2025-01-17 15:20 | CM ---
Addendum entered by Carlie Barr 01/17/25 16:39:
Insurance approved 5 days skilled rehab 1
Start date 01/18/25- 01/22/25
Auth # [id number]
Amira from [facility] updated
Ambulance auth for Acute care # [id number]
Patient will need Covid test prior to transfer.
[facility]
report# [phone]
fax# [phone]
Plan: skilled rehab/[facility] tomorrow
Original Note:
Patient seen bedside.
IA completed.
Dx Fractured femur
Patient lives alone, in 1 story home at [facility]
PT recommended skilled rehab.
Patient agreeable to [facility]
Bed available tomorrow per Amira.
Insurance authorization initiated.
IMM completed.
PCP: Dr Dominique
Pharmacy: [facility]
Plan: [facility] skilled rehab, pending auth.
[2025-01-17] MEDS: ROXICODONE 5 MG PO (15:38)
[2025-01-17] MEDS: LIPITOR 10 MG PO (18:18)
[2025-01-17] MEDS: LOVENOX 40 MG SC (18:18)
[2025-01-17] MEDS: SENOKOT PO (20:32)
[2025-01-17] MEDS: COLACE PO (20:32)
[2025-01-17 23:46] VITALS: BP 140/67
[2025-01-18] MEDS: TYLENOL 650 MG PO ×5 (00:29→15:20)
[2025-01-18 06:00] VITALS: BMI 35.3
[2025-01-18 08:06] VITALS: BP 139/70
[2025-01-18] MEDS: ROXICODONE 5 MG PO (08:37)
[2025-01-18] MEDS: COLACE PO (08:37)
[2025-01-18] MEDS: ZESTRIL 20 MG PO (08:38)
[2025-01-18] MEDS: TOPROL XL 50 MG PO (08:38)
[2025-01-18] MEDS: FLOMAX 0.4 MG PO (08:38)
[2025-01-18] MEDS: LASIX 40 MG PO (08:38)
[2025-01-18] MEDS: DESENEX/MITRAZOL/ZEASORB 1 APPLIC TOPICAL (08:39)
[2025-01-18] MEDS: SENOKOT PO (08:39)
[2025-01-18] MEDS: FLUSH (NSS) 1 FLUSH IV (08:39)
--- NOTE | 2025-01-18 09:49 | W.PN.UPDATE ---
Update Note
Progress Note Update
Patient with periprosthetic right total hip arthroplasty fracture done remotely at [facility]. Treatment discussed plan of care with patient and daughter
- Imaging shows suspected [place] B1 periprosthetic fracture with stable implant; recommend for trial of nonoperative management
- Touchdown weightbearing and trial physical therapy.
- DVT PPx per primary
-X-rays 01/17 to monitor for evidence of instability of prosthesis or fracture segments appear stable (reviewed by Dr. Barrios)
- Follow-up as scheduled for repeat x-ray to check position
--- NOTE | 2025-01-18 11:46 | W.PN.HOSP.TC ---
Today's Communication/Plan
-
discharge
Assessment / Plan
Assessment / Plan
Gen-AAOx3, NAD
HEENT-NC, AT, anicteric, clear oral mm
Neck-supple
CV-reg, no M, +S1/S2
Lungs-clear B/L
Abd-soft, NT, ND
Ext-no edema
Musculoskeletal-no cyanosis, clubbing
Skin-warm and dry, long and curled toenails on both feet
Neuro-grossly non-focal
Psych-calm, cooperative
Acute traumatic right proximal femur periprosthetic fracture -due to fall and underlying osteoporosis. Displacement noted on CT scan. Original hip replacement was 25 years ago at [facility].
Orthopedics recommends nonoperative approach. Continue PT/OT. Continue analgesics. Outpatient follow-up with orthopedics.
Acute bronchitis -chest x-ray shows mild diffuse interstitial prominence. Cannot rule out chronic interstitial lung disease. Clinically does not appear to be in heart failure. Treat supportively for bronchitis.
Last echocardiogram was 12/18/2024, normal biventricular size and systolic function without regional wall motion abnormality. Well-seated TAVR. Mild pulmonary hypertension. No significant change compared to June 2024 study.
Aortic stenosis -s/p TAVR.
Chronic HFpEF - stable, continue home dose Lasix.
Essential hypertension -stable.
history of prostate cancer
Hyperlipidemia -atorvastatin.
Chronic peripheral neuropathy
Obesity due to excess calories
Full code
Dispo - medically stable for discharge to [facility] today.
Updated son (Sal) at bedside.
Follow up with PCP, orthopedics.
33 min spent in discharge process.
Anticipated Discharge: Today
Subjective/Interval History
-
Date of Service: January 18, 2025
Patient seen/examined. No new complaints.
Objective Data
-
Vital Signs:
Vital Signs
Temp Pulse Resp BP Pulse Ox
98.4 F 71 18 139/70 91
01/18/25 08:06 01/18/25 08:06 01/18/25 08:06 01/18/25 08:38 01/18/25 08:06
I&O
01/17/25 01/18/25 01/19/25
06:59 06:59 06:59
Intake Total 480 / 480
Output Total 775 / 775 300 / 300
Balance -775 / -775 180 / 180
Review of Systems
-
History Source: Patient
All other systems: Reviewed and negative
--- NOTE | 2025-01-18 11:48 | W.DS.TRANS ---
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
-
Discharge Instructions:
Discharge Diagnosis/Procedures Right proximal femur periprosthetic fracture,
acute bronchitis
Diet Regular
Activity Other activity
Additional Activity Touchdown weightbearing to right lower extremity
with PT assistance
Driving Restrictions No driving
Bathing Restrictions None
Instructions:
Stand-Alone Forms:
Changes to Home Medications: No
Discharge Medications:
DC Medications w/original date entered in [employer]
amlodipine 5 mg tablet 5 mg PO DAILY Blood Pressure 10/05/23
benazepril 20 mg tablet 20 mg PO DAILY Blood Pressure 10/05/23
cholecalciferol (vitamin D3) 25 mcg (1,000 unit) tablet (Vitamin D3) 25 mcg PO DAILY Supplement 10/05/23
agfgptwvktv-ksfrawhpi-hpwn896-hyal 750 mg-100 mg-125 mg-1.65 mg tablet (Glucosamine Chondroit Complx Advan) 2 tab PO DAILY Supplement 10/05/23
omega 8-feh-ucz-fish oil 1,200 mg (144 mg-216 mg) capsule (Fish Oil) 1,200 cap PO BID AT 0800,1600 Supplement 10/05/23
tamsulosin 0.4 mg capsule 0.4 mg DAILY prostate/urinarry issue 10/05/23
aspirin 81 mg chewable tablet 81 mg PO DAILY Blood Clot Prevention/Tx 11/28/23
cyanocobalamin (vitamin B-12) 1,000 mcg tablet 1,000 mcg PO DAILY Supplement 11/28/23
metoprolol succinate 50 mg tablet,extended release 24 hr (Toprol XL) 50 mg PO DAILY Blood Pressure 11/28/23
ttjtdczvsdfq-sduydlyk-wgenpu tablet 1 tab PO DAILY Supplement 11/28/23
acetaminophen 325 mg tablet 650 mg (2 x 325 mg) PO Q6HPRN PRN ADAMS, mild pain, or fever >101F #0 tabs 12/08/23
furosemide 40 mg tablet (Lasix) 40 mg PO DAILY Fluid retention/Swelling #30 tabs 12/08/23
lovastatin 40 mg tablet 40 mg PO QPM High cholesterol #30 tabs 12/08/23
docusate sodium 100 mg capsule 100 mg PO BID #0 caps 01/17/25
oxycodone 5 mg tablet 5 mg PO Q4HPRN PRN moderate pain #8 tabs 01/17/25
Home Medication Changes
Pending Results: No
--- NOTE | 2025-01-18 12:03 | CM ---
Chart reviewed. Patient for d/c today. Patient accepted at [facility] today
Ambulance transport to be arranged, forms given to
Patient to be transported once [facility] is back, still pending at this time
[facility]
report# [phone]
fax# [phone]
Plan: D/c to [facility]. Ambulance transport
[2025-01-18 12:30] LABS: COVID-19 Antigen Negative (Negative)
[2025-01-18 16:11] VITALS: BP 137/64
== END 2025-01-18 16:45 | DRG 543 ==
LOC: 4 EAST ACU 02:55
PROVIDERS: ADMITTING PHYSICIAN Internal Medicine; ATTENDING PHYSICIAN Hospitalist; CONSULT PHYSICIAN Podiatrist Foot & Ankle Surgery; EMERGENCY PHYSICIAN Emergency Medicine; FAMILY PHYSICIAN Family Medicine; OTHER PHYSICIAN Orthopaedic Surgery
PROC: 0HBRXZZ Excision of Toe Nail, External Approach (ICD-10-PCS; 2025-01-16)
DX: M80.051A Age-related osteoporosis with current pathological fracture, right femur, initial encounter for fracture (principal); I50.32 Chronic diastolic (congestive) heart failure; M97.01XA Periprosthetic fracture around internal prosthetic right hip joint, initial encounter; J20.9 Acute bronchitis, unspecified; W01.0XXA Fall on same level from slipping, tripping and stumbling without subsequent striking against object, initial encounter; R09.02 Hypoxemia; I11.0 Hypertensive heart disease with heart failure; B35.1 Tinea unguium; L60.2 Onychogryphosis; E78.00 Pure hypercholesterolemia, unspecified; G62.9 Polyneuropathy, unspecified; E66.01 Morbid (severe) obesity due to excess calories; Z68.35 Body mass index [BMI] 35.0-35.9, adult; Z79.899 Other long term (current) drug therapy; Z85.46 Personal history of malignant neoplasm of prostate; Z95.2 Presence of prosthetic heart valve; Z91.148 Patient's other noncompliance with medication regimen for other reason; Z96.643 Presence of artificial hip joint, bilateral
CPT/HCPCS: 71046; 73502; 73700; 80048; 85025; 87811; 97163; 97167; 97530; 97535; 99285